=== PATIENT | female | born 1955 | race Caucasian/White ===

== ENCOUNTER 2019-12-18 09:54 | Outpatient (CLI) | payer BC, SELFPAY ==
--- NOTE | ~2019-12-18 | MM_ITS ---
EXAMINATION: MM screening sorin BI w elle HISTORY: Screening TECHNIQUE: Craniocaudal and mediolateral oblique 3-D tomosynthesis images were obtained and synthetic 2-D images were generated. CAD analysis was submitted and interpreted. COMPARISON: Comparison to multiple prior studies sequentially, with oldest reviewed study dated 11/20. BREAST PARENCHYMAL COMPOSITION: The breasts are heterogenously dense, which may obscure small masses FINDINGS: There is no evidence of suspicious mass, calcification, or architectural distortion to sugg est malignancy in either breast. There has been no suspicious interval change. IMPRESSION: 1. No mammographic evidence of malignancy. 2. Recommend routine screening mammography in one year. BI-RADS Category 1: Negative Reviewed, dictated and finalized at location A.
== END 2019-12-18 09:55 | disposition home or self-care (01) ==
PROVIDERS: PCP Family Medicine; Visit Provider Obstetrics & Gynecology
DX: Z12.31 Encounter for screening mammogram for malignant neoplasm of breast (principal)
CPT/HCPCS: 77063; 77067

== ENCOUNTER 2021-01-27 11:17 | Outpatient (CLI) | payer MEDICARE, SELFPAY ==
--- NOTE | ~2021-01-27 | XR_ITS ---
EXAMINATION: XR thoracic spine 3V DATE: 01/27/2021 11:43 INDICATION: Thoracic back pain TECHNIQUE: AP, lateral and lateral swimmer's views of the thoracic spine were obtained. COMPARISON: None. FINDINGS: There is no fracture, dislocation, or subluxation. The vertebral body heights are maintaine d. There is mild loss of intervertebral disc space height in the midthoracic spine. Small degenerativ e osteophytes project from the anterior endplates of multiple vertebral bodies. IMPRESSION: 1. Mild thoracic spondylosis without acute findings. Reviewed, dictated and finalized at location A.
== END 2021-01-27 11:18 | disposition home or self-care (01) ==
LOC: ANHIMG 11:19
PROVIDERS: PCP Family Medicine; Visit Provider Nurse Practitioner
DX: M47.814 Spondylosis without myelopathy or radiculopathy, thoracic region (principal)
CPT/HCPCS: 72072

== ENCOUNTER 2021-02-10 09:52 | Outpatient (CLI) | payer MEDICARE, SELFPAY ==
--- NOTE | ~2021-02-10 | DEXA_ITS ---
Bone Density Report Name: Zhao Silverio Age: 65 Sex: Female Ethnicity: White Date of : 1955 Indication: osteopenia; postmenopausal Referring Provider: EDI TRAORE Study: Bone densitometry was performed. Exam Date: February 10, 2021 Accession number: [id number] Bone Density: Region BMD T-score Z-score Classification AP Spine (L1, L2) 0.825 -1.4 0.3 Osteopenia Femoral Neck (Left) 0.761 -0.8 0.8 Normal Total Hip (Left) 0.978 0.3 1.6 Normal Total Hip Bilateral Avg 0.960 0.2 1.5 Normal Femoral Neck (Right) 0.723 -1.1 0.4 Osteopenia Total Hip (Right) 0.941 0.0 1.3 Normal World Health Organization criteria for BMD impression classify patients as: Normal (T-score at or above -1.0), Osteopenia (T-score between -1.0 and -2.5), or Osteoporosis (T-score at or below -2.5). 10-year Fracture Risk(1): Major Osteoporotic Fracture 8.3% Hip Fracture 0.7% Reported Risk Factors: [place] (), Neck BMD=0.723, BMI=28.3 (1) FRAX(R) Version 3.08. Fracture probability calculated for an untreated patient. Fracture probability may be lower if the patient has received treatment. Previous Exams: Region Exam Age BMD T-score BMD Change BMD Change Date g/cm2 vs Baseline vs Previous AP Spine(L1, L2) 02/10/2021 65 0.825 -1.4 0.055(7.1%)* 0.002(0.3%) 01/21/2018 62 0.823 -1.4 0.053(6.9%)* 0.017(2.1%) 12/01/2015 60 0.806 -1.6 0.036(4.7%)* 0.036(4.7%)* 11/28/2013 58 0.770 -1.9 Total Hip(Left) 02/10/2021 65 0.978 0.3 0.024(2.5%) 0.010(1.0%) 01/21/2018 62 0.968 0.2 0.014(1.5%) 0.006(0.6%) 12/01/2015 60 0.962 0.2 0.008(0.9%) 0.008(0.9%) 11/28/2013 58 0.954 0.1 Total Hip(Right) 02/10/2021 65 0.941 0.0 0.008(0.9%) -0.030(-3.1%)* 01/21/2018 62 0.971 0.2 0.038(4.1%)* 0.010(1.0%) 12/01/2015 60 0.962 0.2 0.028(3.1%)* 0.028(3.1%)* 11/28/2013 58 0.933 -0.1 *Denotes significance at 95% confidence level, LSC for AP Spine = 0.022 g/cm2, LSC for Total Hip = 0.027 g/cm2 Clinical Information Provided by Patient: Has used the following medications: Boniva (i.e. ibandronate), HRT (i.e. estrogen/hormone therapy), Vitamin D Patient maximum height was 60.5 Menopause Age: 49 No regular weight bearing exercise Drinks caffeinated beverages Onset of menses at age 10 Number of children 2 Impression: The patient has low bone mass, based on the Total
== END 2021-02-10 09:53 | disposition home or self-care (01) ==
PROVIDERS: PCP Family Medicine; Visit Provider Obstetrics & Gynecology
DX: Z78.0 Asymptomatic menopausal state (principal); M85.88 Other specified disorders of bone density and structure, other site; M85.851 Other specified disorders of bone density and structure, right thigh
CPT/HCPCS: 77080

== ENCOUNTER → 2021-02-18 03:23 | Outpatient (CLI) | payer MEDICARE, SELFPAY ==
[2021-02-18 18:10] LABS: SARS-CoV-2 RNA PCR Negative
== END ==
PROVIDERS: PCP Family Medicine; Visit Provider Family Medicine
DX: R05.9 Cough, unspecified (principal); Z20.822 Contact with and (suspected) exposure to COVID-19
CPT/HCPCS: C9803; U0003; U0005

== ENCOUNTER 2021-03-18 10:33 | Outpatient (CLI) | payer MEDICARE, SELFPAY ==
--- NOTE | ~2021-03-18 | MM_ITS ---
EXAMINATION: MM screening sorin BI w elle HISTORY: Screening TECHNIQUE: Craniocaudal and mediolateral oblique 3-D tomosynthesis images were obtained and synthetic 2-D images were generated. CAD analysis was submitted and interpreted. COMPARISON: Comparison to multiple prior studies sequentially, with oldest reviewed study dated 12/31. BREAST PARENCHYMAL COMPOSITION: The breasts are heterogenously dense, which may obscure small masses FINDINGS: There is no evidence of suspicious mass, calcification, or architectural distortion to sugg est malignancy in either breast. There has been no suspicious interval change. IMPRESSION: 1. No mammographic evidence of malignancy. 2. Recommend routine screening mammography in one year. BI-RADS Category 1: Negative Reviewed, dictated and finalized at location A. [employer]
== END 2021-03-18 10:34 | disposition home or self-care (01) ==
LOC: ANHIMG 10:36
PROVIDERS: PCP Nurse Practitioner; Visit Provider Obstetrics & Gynecology
DX: Z12.31 Encounter for screening mammogram for malignant neoplasm of breast (principal)
CPT/HCPCS: 77063; 77067

== ENCOUNTER → 2021-12-08 11:00 | Outpatient (CLI) | payer MEDICARE, SELFPAY ==
--- NOTE | ~2021-12-08 | MR_ITS ---
EXAMINATION: MR shoulder RT wo con DATE: 12/08/2021 11:33 INDICATION: Evaluate right shoulder pain TECHNIQUE: Magnetic resonance imaging (MRI) of the right shoulder was performed without intravenous c ontrast. Sequences included axial PD-weighted FS FSE, coronal oblique PD-weighted FS FSE, coronal obl ique T2-weighted FS FSE, sagittal PD-weighted FS FSE, and sagittal T1-weighted SE. COMPARISON: None. FINDINGS: Coracoacromial arch: The acromion undersurface is curved in morphology (type II). The coracoacromial ligament is normal. M oderate acromioclavicular osteoarthritis with small inferiorly directed osteophytes arising from the lateral head of the clavicle. Rotator cuff: Mild tendinopathy without discrete tear of the supraspinatus and anterior infraspinatus tendons. The subscapularis and teres minor tendons are normal. Normal rotator cuff muscle bulk and signal. Biceps tendon, glenoid labrum and glenohumeral cartilage: Long head of the biceps tendon is normal. Small tear at the base of the 12:00-11:00 position of the p osterior superior glenoid labrum beginning at the chondral labral junction. The posterior and inferio r labrum are diminutive. Diffuse mild partial-thickness cartilage loss along the glenoid. Approximate 1.5 cm diameter region of deep chondral ulceration with underlying cortical irregularity and small c entral subchondral osteophytes at the posterior superior aspect of the humeral head. Additional likel y scattered deep chondral fissuring of the humeral head. Fluid: Small glenohumeral joint effusion with partial extension of a small amount of fluid along the long he ad biceps tendon sheath. 8 x 2 x 4 mm immediate signal intensity lesion surrounded by fluid in the bi ceps tendon sheath below level of the intertubercular groove which could represent either nodular syn ovitis or a small loose body. No intra-articular loose osteochondral bodies. No abnormal increased fl uid in the subacromial/subdeltoid bursa to suggest bursitis. Bones: Mild likely degenerative subarticular edema and cystlike changes at the both sides of the acromioclav icular joint. Otherwise normal marrow signal. No fracture or pathologic marrow replacing process. IMPRESSION: 1. 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 2. Small SLAP tear at the 11:00-12:00 position of the posterior superior glenoid labrum. 3. Mild supraspinatus and anterior infraspinatus tendinopathy without discrete tear. 4. Mild acromion clavicular osteoarthritis. Reviewed, dictated and finalized at location A. IMPRESSION: 1. Mild glenohumeral osteoarthritis with high-grade chondromalacia along the hu meral head. 2. Small SLAP tear at the 11:00-12:00 position of the posterior superior glenoi d labrum. 3. Mild supraspinatus and anterior infraspinatus tendinopathy without discrete tear. 4. Mild acromion clavicular osteoarthritis.
== END ==
PROVIDERS: PCP Family Medicine; Visit Provider Nurse Practitioner Family
DX: S43.431A Superior glenoid labrum lesion of right shoulder, initial encounter (principal); M19.011 Primary osteoarthritis, right shoulder; M75.101 Unspecified rotator cuff tear or rupture of right shoulder, not specified as traumatic
CPT/HCPCS: 73221

== ENCOUNTER 2022-08-03 08:05 | Outpatient (CLI) | payer MEDICARE, SELFPAY ==
--- NOTE | 2022-08-20 16:13 | WPDHOMESLEEP ---
Sleep Study - Home Unattended Date of Study: 08/03/22 Ordering Provider: Tiesha Duran NP Interpreting Provider: Kamilah Chen MD Home Sleep Study Type: Watch PAT Height: 1.52 m Weight: 65.771 kg Body Mass Index: 28.3 Neck Circumference (inches): 13 Mcfaddin: 8 Reason for Sleep Study Daytime fatigue, disturbed nighttime sleep Sleep History Zhao Silverio is a 66-year-old female who is tired during the day and has no energy. Occasionally she has restless and achy legs. This is been going on for 1-2 years. She does not awaken from sleep feeling short of breath or awaken at night with heartburn, belching or coughing. She does not snore and other people do not tell her that she snores loudly. She does not have trouble sleeping with a cold. She does not wake up gasping for breath at night. She does not sweat excessively at night or notice her heart pounding or beating irregularly at night. She occasionally falls asleep during the day. She does not fall asleep involuntarily or while driving. She does not have loss of muscle tone with strong emotion. She does not have daytime difficulties due to excessive sleepiness. She is retired. She rarely feels paralyzed on waking or falling asleep. She does not have vivid dreamlike scenes on waking or falling asleep and does not feel afraid to go to sleep. She does not have nightmares. She occasionally remembers her dreams. She occasionally has racing thoughts. On occasion she feels sad, depressed, or anxious. She occasionally has muscular tension. She rarely notices parts of her body jerking. She does not kick at night. Occasionally has she she has crawling and aching feelings in her legs. She occasionally has leg pain during the night. She occasionally has morning jaw pain. She rarely grinds her teeth during sleep. She occasionally is bothered by pain during the day. She rarely is awakened by pain at night. She frequently wakes up feeling stiff in the morning with sore achy muscles and pain in the neck and spine. She has memory problems. She takes antacids regularly. Normal bedtime is 11:30 p.m.. It may take up to 1 hour to fall asleep. She routinely wakes up once during the middle of the night to go to the bathroom. She is able to return to sleep in 5 minutes. Her normal wake time is 8:30 a.m.. Weekend schedule is the same. She estimates getting 8 hours of sleep at night. Sometimes she takes naps in the afternoon or evening. On occasion a short nap lasting 10 or 15 minutes is refreshing. She feels better in the afternoon compared to other times a day. Habits: Never smoked tobacco. Caffeine 1 cup of coffee a day. Alcohol, 1 glass of wine 5 nights a week. No recreational substances. 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 GERD (gastroesophageal reflux disease) History of bradycardia Hyperlipidemia Impingement syndrome of right shoulder Overactive bladder Right shoulder pain Surgical History Surgical History H/O cataract removal with insertion of prosthetic lens No pertinent past surgical history Family History Family History Mother Family history of thyroid disease Hypertension Family history of arthritis Father Family history of arthritis Family history of lung cancer Other Family history of cardiovascular disease Family history of malignant neoplasm Family history of malignant neoplasm of stomach Family history of throat cancer Social History Social History Smoking status: Never smoker Alcohol intake: current Alcohol use details: wine, occasionally Substance use: never Substance use type: does not use Lack of Transportation: No Lack of Food: Never True
[2022-08-20 16:38] VITALS: BMI 28.3
== END 2022-08-04 11:35 | disposition home or self-care (01) ==
LOC: ANHCSM 08:17
PROVIDERS: PCP Family Medicine; Visit Provider Nurse Practitioner
DX: R53.83 Other fatigue (principal); G47.10 Hypersomnia, unspecified
CPT/HCPCS: 95800

== ENCOUNTER 2022-08-04 15:43 | Outpatient (CLI) | payer MEDICARE, SELFPAY ==
--- NOTE | ~2022-08-04 | MM_ITS ---
EXAMINATION: MM screening sorin BI w elle HISTORY: Screening mammogram TECHNIQUE: Craniocaudal and mediolateral oblique 3-D tomosynthesis images were obtained and synthetic 2-D images were generated. CAD analysis was submitted and interpreted. COMPARISON: 03/18/2021, 12/18/2019, 10/31/2018 bilateral screening mammogram examinations BREAST PARENCHYMAL COMPOSITION: The breasts are heterogeneously dense, which may obscure small masses . FINDINGS: There is no evidence of suspicious mass, calcification, or architectural distortion to sugg est malignancy in either breast. There has been no suspicious interval change. IMPRESSION: 1. No mammographic evidence of malignancy. 2. Recommend routine screening mammography in one year. BI-RADS Category 1: Negative Reviewed, dictated and finalized at location A.
== END 2022-08-04 15:44 | disposition home or self-care (01) ==
LOC: ANHIMG 15:45
PROVIDERS: PCP Family Medicine; Visit Provider Nurse Practitioner
DX: Z12.31 Encounter for screening mammogram for malignant neoplasm of breast (principal)
CPT/HCPCS: 77063; 77067

== ENCOUNTER 2022-12-27 08:44 | Emergency (ER) | payer MEDICARE, SELFPAY ==
--- NOTE | 2022-12-27 08:50 | ED.SKABFB ---
HPI - Skin/Abscess/Foreign Bdy General Chief complaint: Skin/Abscess/Foreign Body Stated complaint: Poison Joana Source: patient and RN notes reviewed Mode of arrival: ambulatory Limitations: no limitations History of Present Illness HPI narrative: Patient is a 67-year-old female who presents to the [facility] with complaints of poison joana. Patient states that she accidentally pulled poison joana out of the yd on Sunday of last week. She presents with rash to bilateral forearms. She also has a blister to the left forearm that is fluid filled. She reports itching to the areas with the rash present. States that she has had poison joana before and has had similar symptoms. Related Data Home Medications Medication Instructions Recorded Confirmed ergocalciferol (vitamin D2) 1,250 50,000 unit WEEKLY 02/18/19 12/27/22 mcg (50,000 unit) capsule estradiol 0.01% (0.1 mg/gram) 1 g vaginal 2XW 02/18/19 12/27/22 vaginal cream solifenacin 10 mg tablet 10 mg PO DAILY 09/14/20 12/27/22 escitalopram oxalate 10 mg tablet 5 mg PO DAILY 06/07/22 12/27/22 (Lexapro) triamcinolone acetonide 0.5 % 1 applic topical BID PRN Rash 06/07/22 12/27/22 topical cream Allergies Allergy/AdvReac Type Severity Reaction Status Date / Time ampicillin Allergy Unknown Hives Verified 12/27/22 08:56 cephalexin Allergy Unknown Rash Verified 12/27/22 08:56 Review of Systems Review of Systems: CONSTITUTIONAL: Denies fever, chills, or sweats. EYES: Denies visual changes, redness, or discharge. ENT: Denies otalgia and sore throat CARDIOVASCULAR: Denies chest pain, palpitations, or edema. RESPIRATORY: Denies cough or dyspnea. GASTROINTESTINAL: Denies abdominal pain, nausea, vomiting, or diarrhea. GENITOURINARY: Denies dysuria or hematuria. SKIN: Reports rash or itching. MUSCULOSKELETAL: Denies back pain, joint pain, or myalgia. NEUROLOGIC: Denies headache, numbness, or weakness. Pertinent positives per HPI. 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 GERD (gastroesophageal reflux disease) History of bradycardia Hyperlipidemia Impingement syndrome of right shoulder Overactive bladder Right shoulder pain Surgical History Surgical History H/O cataract removal with insertion of prosthetic lens No pertinent past surgical history Family History Family History Mother Family history of thyroid disease Hypertension Family history of arthritis Father Family history of arthritis Family history of lung cancer Other Family history of cardiovascular disease Family history of malignant neoplasm Family history of malignant neoplasm of stomach Family history of throat cancer Social History Social History Smoking status: Never smoker Alcohol intake: current Alcohol use details: wine, occasionally Substance use: never Substance use type: does not use Lack of Transportation: No Lack of Food: Never True Current Housing: I Have Housing Concerned About Future Housing: No Difficulty Paying Gas/Electric Bills: No Difficulty Paying for Meds: No Currently Unemployed: No Education: Associate Degree Difficulty w/ Childcare or Family Care: No Living arrangements: with family Additional living arrangements comments: Occupation/Education: retired Gender identity (if verbalized by the patient): Female Sexual Orientation (if Verbalized by the Patient): Straight or Heterosexual Agree to blood products: Yes Comments At the time of my signature, I reviewed and agree with the nursing past medical, surgical, social, and family history. There is no relevant family history pertinent to the patient complaint. Exam
[2022-12-27 08:57] VITALS: BP 112/76; PULSE 75; RESP 18; TEMP 35.8; O2SAT 98
== END 2022-12-27 09:04 | disposition home or self-care (01) ==
PROVIDERS: Emergency Provider Nurse Practitioner; PCP Family Medicine
DX: L23.7 Allergic contact dermatitis due to plants, except food (principal); K21.9 Gastro-esophageal reflux disease without esophagitis; E78.5 Hyperlipidemia, unspecified; F41.9 Anxiety disorder, unspecified
CPT/HCPCS: 99213; G0463

== ENCOUNTER 2023-01-15 11:38 | Outpatient (CLI) | payer MEDICARE, SELFPAY ==
[2023-01-15 19:53] LABS: Magnesium 2.2 mg/dL (1.6-2.3)
[2023-01-15 21:53] LABS: Hemoglobin A1C 5.2 % (<5.7)
== END 2023-01-15 11:39 | disposition home or self-care (01) ==
PROVIDERS: PCP Family Medicine; Visit Provider Nurse Practitioner Family
DX: Z13.1 Encounter for screening for diabetes mellitus (principal); Z13.21 Encounter for screening for nutritional disorder; R79.89 Other specified abnormal findings of blood chemistry; R51.9 Headache, unspecified; E53.8 Deficiency of other specified B group vitamins
CPT/HCPCS: 36415; 83036; 83735

== ENCOUNTER → 2023-01-17 10:48 | Outpatient (CLI) | payer MEDICARE, SELFPAY ==
--- NOTE | ~2023-01-17 | CT_ITS ---
EXAMINATION: CT BRAIN W/O DATE: 01/17/2023 11:02 INDICATION: Headaches TECHNIQUE: Computed tomography (CT) of the head was performed without intravenous contrast. The dose- length product was 645.69 mGy-cm. Automated exposure control and iterative reconstruction technique w ere employed. COMPARISON: No prior studies for comparison. FINDINGS: Normal brain parenchymal volume for age. Normal barney-white differentiation. No acute intrac ranial hemorrhage, infarction, mass or mass effect. No ventriculomegaly or midline shift. Midline sagittal images demonstrate a normal corpus callosum, c raniovertebral junction and sella turcica. Basilar cisterns are patent. Paranasal sinuses and mastoids are pneumatized. No depressed skull fractures. IMPRESSION: 1. No acute intracranial abnormality. Reviewed, dictated and finalized at location B.
== END ==
PROVIDERS: PCP Family Medicine; Visit Provider Nurse Practitioner Family
DX: R51.9 Headache, unspecified (principal)
CPT/HCPCS: 70450

== ENCOUNTER 2023-09-14 10:02 | Outpatient (CLI) | payer MEDICARE, SELFPAY ==
--- NOTE | ~2023-09-14 | MM_ITS ---
EXAMINATION: MM screening sorin BI w elle HISTORY: Screening TECHNIQUE: Craniocaudal and mediolateral oblique 3-D tomosynthesis images were obtained and synthetic 2-D images were generated. CAD analysis was submitted and interpreted. COMPARISON: Comparison to multiple prior studies sequentially, with oldest reviewed study dated 02/07. BREAST PARENCHYMAL COMPOSITION: The breasts are heterogeneously dense, which may obscure small masses . FINDINGS: There is no evidence of suspicious mass, calcification, or architectural distortion to sugg est malignancy in either breast. There has been no suspicious interval change. IMPRESSION: 1. No mammographic evidence of malignancy. 2. Recommend routine screening mammography in one year. BI-RADS Category 1: Negative Reviewed, dictated and finalized at location B.
== END 2023-09-14 10:03 | disposition home or self-care (01) ==
LOC: ANHIMG 10:04
PROVIDERS: PCP Family Medicine; Visit Provider Obstetrics & Gynecology Gynecology
DX: Z12.31 Encounter for screening mammogram for malignant neoplasm of breast (principal)
CPT/HCPCS: 77063; 77067

== ENCOUNTER 2024-01-22 12:19 | Emergency (ER) | payer MEDICARE, SELFPAY ==
--- NOTE | 2024-01-22 12:25 | ED.URI ---
HPI - URI/Sore Throat General Chief Complaint: Ear Stated Complaint: rt earache Time Seen by Provider: 01/22/24 12:48 Source: patient, RN notes reviewed and old records reviewed Mode of arrival: ambulatory Limitations: no limitations History of Present Illness HPI Narrative: 68-year-old female presents to the [facility] with complaints of right ear pain. Symptoms started 1 week ago Patient reports that she does use Flonase daily, has not used any when her ear started becoming uncomfortable. Denies any other treatment prior to arrival Related Data Home Medications Medication Instructions Recorded Confirmed ergocalciferol (vitamin D2) 1,250 50,000 unit WEEKLY 02/18/19 01/22/24 mcg (50,000 unit) capsule estradiol 0.01% (0.1 mg/gram) 1 g vaginal 2XW 02/18/19 01/22/24 vaginal cream solifenacin 10 mg tablet 10 mg PO DAILY 09/14/20 01/22/24 Allergies Allergy/AdvReac Type Severity Reaction Status Date / Time ampicillin Allergy Unknown Hives Verified 10/04/23 08:32 cephalexin Allergy Unknown Rash Verified 10/04/23 08:32 Review of Systems Review of Systems: All systems reviewed & are unremarkable except as noted in HPI and below Constitutional: Constitutional: Reports no additional constitutional complaints Eyes: Eyes: Reports no additional eye complaints ENT: Reports as per HPI and Reports otalgia (Right) Cardiovascular: Cardiovascular: Reports no additional cardiovascular complaints, Denies chest pain and Denies dyspnea Respiratory: Respiratory: Reports no additional respiratory complaints, Denies chest congestion, Denies cough and Denies dyspnea Gastrointestinal: Gastrointestinal: Reports no additional gastrointestinal complaints, Denies abdominal pain, Denies nausea and Denies vomiting Musculoskeletal: Musculoskeletal: Reports no additional musculoskeletal complaints Integumentary/Breasts: Skin/Breast: Reports system reviewed and no additional complaints, except as docu Neurologic: Reports system reviewed and no additional complaints, except as documented Psychiatric: Psychiatric: Reports no additional psychiatric complaints Allergic/Immunologic: Allergic/Immunologic: Reports no additional allergic/immunologic complaints PMFSH Past Medical History Medical History Anxiety DJD of AC (acromioclavicular) joint DJD of right shoulder DJD of shoulder GERD (gastroesophageal reflux disease) History of bradycardia Hyperlipidemia Impingement syndrome of both shoulders Impingement syndrome of right shoulder Increased frequency of headaches Left shoulder pain Low vitamin D level Overactive bladder Right shoulder pain Surgical History Surgical History H/O cataract removal with insertion of prosthetic lens No pertinent past surgical history Family History Family History Mother Family history of thyroid disease Hypertension Family history of arthritis Father Family history of arthritis Family history of lung cancer Other Family history of cardiovascular disease Family history of malignant neoplasm Family history of malignant neoplasm of stomach Family history of throat cancer Social History Social History Smoking status: Never smoker Alcohol intake: current Alcohol use details: wine, occasionally Substance use: never Substance use type: does not use Lack of Transportation: No Lack of Food: Never True Current Housing: I Have Housing Concerned About Future Housing: No Difficulty Paying Gas/Electric Bills: No Difficulty Paying for Meds: No Currently Unemployed: No Education: Associate Degree Difficulty w/ Childcare or Family Care: No Living arrangements: with family Additional living arrangements comments: Occupation/Education: retired
[2024-01-22 12:30] VITALS: BP 108/60; PULSE 75; RESP 16; TEMP 36.4; O2SAT 99
== END 2024-01-22 13:04 | disposition home or self-care (01) ==
PROVIDERS: Emergency Provider Nurse Practitioner; PCP Family Medicine
DX: H92.01 Otalgia, right ear (principal); K21.9 Gastro-esophageal reflux disease without esophagitis; E78.5 Hyperlipidemia, unspecified; M19.011 Primary osteoarthritis, right shoulder; Z96.1 Presence of intraocular lens; Z98.42 Cataract extraction status, left eye; Z98.41 Cataract extraction status, right eye
CPT/HCPCS: 99213; G0463

== ENCOUNTER 2024-03-11 09:30 | Outpatient (CLI) | payer MEDICARE, SELFPAY ==
[2024-03-11 13:00] LABS: Basophils Absolute Auto 0.1 K/mm3 (0.0-0.1); Basophils Percent Auto 0.7 % (0.2-1.2); Eosinophils Absolute Auto 0.1 K/mm3 (0-0.3); Eosinophils Percent Auto 1.2 % (0-4.4); Hematocrit 43.9 % (37.0-47.0); Hemoglobin 13.8 g/dL (12.0-15.0); Immature Granulocyte Absolute 0.02 K/mm3 (0.00-0.031); Immature Granulocyte Percent A 0.3 % (0-0.5); Lymphocytes Absolute Auto 1.69 K/mm3 (0.9-3.2); Lymphocytes Percent Auto 23.2 % (18.3-44.2); Mean Corpuscular HGB Conc 31.4 g/dl (32-36); Mean Corpuscular Hemoglobin 30.7 pg (26-34); Mean Corpuscular Volume 97.6 fl (80-100); Mean Platelet Volume 10.4 fl (7.4-10.4); Monocytes Absolute Auto 0.5 K/mm3 (0.1-0.6); Monocytes Percent Auto 6.3 % (2.6-8.5); Neutrophils Percent Auto 68.3 % (45.5-73.1); Platelet Count Result 200 k/mm3 (150-375); Red Cell Distribution Width 13.7 % (11.5-14.5); White Blood Count 7.3 K/mm3 (4.5-10.0)
[2024-03-11 13:23] LABS: Alanine Aminotransferase 17 U/L (6-35); Albumin Level 4.1 g/dL (3.5-5.1); Alkaline Phosphatase 63 U/L (38-126); Anion Gap 4 mmol/L (4-12); Aspartate Amino Transferase 25 U/L (14-36); Bilirubin,Total 0.7 mg/dL (0.2-1.3); Blood Urea Nitrogen 13 mg/dL (7-17); Carbon Dioxide 30 mmol/L (22-30); Chloride 106 mmol/L (98-107); Cholesterol 173 mg/dL (0-200); Estimated Glomerular Filt Rate > 60; Glucose 82 mg/dL (65-110); HDL Direct 67 mg/dL; Potassium 4.3 mmol/L (3.4-5.0); Sodium 140 mmol/L (137-145); Triglycerides 59 mg/dL (<150)
[2024-03-11 13:43] LABS: LDL Cholesterol Direct 76 mg/dL
[2024-03-11 14:00] LABS: Vitamin D 25 Hydroxy 32.7 ng/mL
[2024-03-11 16:02] LABS: Hemoglobin A1C 5.7 % (<5.7)
== END 2024-03-11 09:31 | disposition home or self-care (01) ==
PROVIDERS: PCP Family Medicine; Visit Provider Family Medicine
DX: E55.9 Vitamin D deficiency, unspecified (principal); Z00.00 Encounter for general adult medical examination without abnormal findings; F41.9 Anxiety disorder, unspecified; I49.1 Atrial premature depolarization; M19.019 Primary osteoarthritis, unspecified shoulder; R51.9 Headache, unspecified; R53.83 Other fatigue; E78.5 Hyperlipidemia, unspecified; Z79.899 Other long term (current) drug therapy; Z13.29 Encounter for screening for other suspected endocrine disorder; E53.8 Deficiency of other specified B group vitamins; R73.9 Hyperglycemia, unspecified
CPT/HCPCS: 36415; 80053; 80061; 82306; 82607; 83036; 84443; 85025

== ENCOUNTER 2024-06-02 14:54 | Outpatient (CLI) | payer MEDICARE, SELFPAY ==
--- NOTE | ~2024-06-02 | DEXA_ITS ---
Bone Density Report Name: MAURI MARIE Age: 68 Sex: Female Ethnicity: White Date of : 1955 Indication: osteopenia; height loss; Referring Provider: AZALIA, ESTIVEN Study: Bone densitometry was performed. Exam Date: June 02, 2024 Accession number: [id number] Bone Density: Region BMD T-score Z-score Classification AP Spine(L1-L4) 0.969 -0.7 1.4 Normal Femoral Neck (Left) 0.781 -0.6 1.2 Normal Total Hip (Left) 0.943 0.0 1.5 Normal Femoral Neck (Right) 0.802 -0.4 1.4 Normal Total Hip (Right) 1.042 0.8 2.3 Normal Total Hip Mean 0.992 0.4 1.9 Normal World Health Organization criteria for BMD impression classify patients as: Normal (T-score at or above -1.0), Osteopenia (T-score between -1.0 and -2.5), or Osteoporosis (T-score at or below -2.5). 10-year Fracture Risk: FRAX not reported because: All T-scores for Spine Total, Hip Total, Femoral Neck at or above -1.0 Previous Exams: Region Exam Age BMD T-score BMD Change BMD Change Date g/cm2 vs Baseline vs Previous AP Spine (L1-L4) 06/02/2024 68 0.969 -0.7 0.129 (15.4%)* 0.081 (9.1%)* 12/01/2015 60 0.888 -1.4 0.049 (5.8%)* 0.049 (5.8%)* 11/28/2013 58 0.839 -1.9 Total Hip(Left) 06/02/2024 68 0.943 0.0 -0.011 (-1.2%) -0.035 (-3.6%) 02/10/2021 65 0.978 0.3 0.024 (2.5%) 0.010 (1.0%) 01/21/2018 62 0.968 0.2 0.014 (1.5%) 0.006 (0.6%) 12/01/2015 60 0.962 0.2 0.008 (0.9%) 0.008 (0.9%) 11/28/2013 58 0.954 0.1 Total Hip(Right) 06/02/2024 68 1.042 0.8 0.108 (11.6%)# 0.100 (10.7%)# 02/10/2021 65 0.941 0.0 0.008 (0.9%) -0.030 (-3.1%) 01/21/2018 62 0.971 0.2 0.038 (4.1%)* 0.010 (1.0%) 12/01/2015 60 0.962 0.2 0.028 (3.1%)* 0.028 (3.1%)* 11/28/2013 58 0.933 -0.1 *Denotes significance at 95% confidence level, LSC for AP Spine = 0.022 g/cm2, LSC for Total Hip = 0.027 g/cm2 # Denotes dissimilar scan types or analysis methods Clinical Information Provided by Patient: Patient maximum height was 60.5 Menopause Age: 49 No regular weight bearing exercise Drinks caffeinated beverages Onset of menses at age 11 Number of children 2 Impression: The patient has normal bone mass. The BMD for the Total Hip(Left) decreased, changing by -3.6% since the last DXA exam. Discussion: BONE DENSITY IS ABOVE THE MINIMUM DESIRABLE LEVEL AT ALL SKELETAL SITES TESTED. This patient?s bone mineral density is above the minimum desirable level (T-score -1.0 or better) at all sites measured. The patient should follow a healthful lifestyle (good nutrition with adequate calcium and vitamin D, and appropriate weight-bearing exercise). Follow-Up: Consider repeating this study in 3 to 4 years to reassess this patient's status, or sooner if there is some new clinical indication. Reported by: ALHAJI on 06/02/2024 3:28:00 PM. Reviewed, dictated and finalized at location Tila BATEMAN
--- OUTSIDE RECORDS SUMMARY | 2024-06-02 17:23 | XMS_ITS | Clinical Summary ---
Author Organization [facility] Address [address] [place] [address] Phone Care Team Providers Care Laryngologist Name Role Phone Unavailable Primary Care Provider Unavailabl e Immunizations Immunization Administration Dates Next Due INFLUENZA VACCINE HIGH DOSE QUADRIVALENT 65 YR U P PF IM 01/06/2022 Social History Tobacco Use Types Packs/Day Years Used Date Smoking Tobacco: Never Assessed Comments Unknown Sex and Gender Information Value Date Recorded Sex Assigned at Not on file Legal Sex Female 3:49 AM [employer] Gender Identity Not on file Sexual Orientation Not on file Plan of Treatment Health Maintenance Due Date Last Done Comments DTAP/TDAP/TD VACCINES (1 - Tdap) 1973 BREAST CANCER SCREENING 1994 COLORECTAL SCREENING 10/25/1999 Colorectal Cancer Screening 10/25/1999 FIT-DNA Q 3 years 10/25/1999 FIT/FOBT Q 1 year 10/25/1999 Flex Sig/CT Colonography Q 5 years 10/25/1999 PNEUMOCOCCAL VACCINE 65+ YEARS (1 of 1 - PCV) 10/25/19 05 ZOSTER VACCINE (1 of 2) 2004 OSTEOPOROSIS SCREENING 10/25/2019 INFLUENZA VACCINE (#1) 2023 01/06/2022 RSV VACCINE (60+ or ) (1 - 1-dose 75+ series) 2029 Insurance [facility] [id number] RX [employer] Member Subscriber Plan / Payer (Ef fective for All Dates) Name:Zhao Silverio Relation to Subscriber:Self Name:Zhao Silverio Payer ID:Not on file Group ID:[id number] Type:RX Medicare Part D Address: [address]
--- OUTSIDE RECORDS SUMMARY | 2024-06-02 17:23 | XMS_ITS | Encounter Summary ---
Author Organization [facility] Address 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
--- OUTSIDE RECORDS SUMMARY | 2024-06-02 17:23 | XMS_ITS | Patient Health Summary ---
Author Organization [facility] [employer] Address [address] [place] [address] Care Team Providers Care Spa Technician Name Role Phone Unavailable Primary Care Provider Unavailabl e Note from [facility],non-owned Affiliates and Associated Physician Practices is amultiple site organization consisting of ambulatory clinics and hospital sitesin [place], [place], [place] and [place]. This disclosure is being madepursuant to the Care Everywhere program and may not contain all information available regarding this patient. Last updated 17.[facility] [employer] Social History Tobacco Use Types Packs/Day Years Used Date Smoking Tobacco: Never Assessed Sex and Gender Information Value Date Recorded Sex Assigned at Not on file Gender Identity Female 05/20/2021 1:03 PM ASSISTANT PUBLIC DEFENDER Sexual Orientation Not on file Procedures * XR PELVIS W BILAT HIP 2VW(Performed 05/20/2021) Performed for Ankylosing spondylitis of multiple sites in spine (HCC), Sacroiliitis (HCC) * VITAMIN D 1,25 DIHYDROXY + 25 HYDROXY(Performed 12/30/2011) * LIPID PROFILE(Performed 12/30/2011) * COMPREHENSIVE METABOLIC PANEL(Performed 12/30/2011) * BACTERIAL VAGINOSIS DNA PCR(Performed 02/17/2011) * URINALYSIS - POINT OF CARE (AMB) [facility](Performed 01/04/2011) * URINALYSIS - POINT OF CARE (AMB) [facility](Performed 12/27/2010) * CULTURE URINE(Performed 12/27/2010) * CELIAC DISEASE REFLEXIVE CASCADE(Performed 12/15/2010) * LIPID PROFILE(Performed 12/15/2010) * PATHOLOGY/GENETICS HISTORICAL-ONBASE(Performed 12/07/2010) * PATHOLOGY/GENETICS HISTORICAL-ONBASE(Performed 12/06/2010) * PAP IG RFLX HPV ASCU(Performed 11/26/2009) * HPV HIGH RISK(Performed 11/26/2009) * BASIC METABOLIC PANEL (CALCIUM TOTAL)(Performed 12/19/2008) * LIPID PROFILE(Performed 12/19/2008) * PAP IG RFLX HPV ASCU(Performed 11/05/2008) * PATHOLOGY/GENETICS HISTORICAL-ONBASE(Performed 02/13/2008) * PATHOLOGY/GENETICS HISTORICAL-ONBASE(Performed 02/13/2008) * LAB HISTORICAL RESULTS-ONBASE(Performed 02/13/2008) Results * XR HIPS BILATERAL 2 VW W AP PELVIS (05/20/2021 1:23 PM ASSISTANT PUBLIC DEFENDER) Anatomical Region Laterality Modality Pelvis, Lower Extremity Radiogra phic Imaging 05/20/2021 2:40 PM ASSISTANT PUBLIC DEFENDER Narrative 05/20/2021 2:40 PM ASSISTANT PUBLIC DEFENDER EXAM: XR PELVIS W BILAT HIP 2VW*[id number] INDICATION: Ankylosing spondylitis of multiple sites in spine, pelvic pain, bilateral hip pain COMPARISON: none available FINDINGS: There is no displaced fracture or dislocation. There is no osseous destruction. Significant hypertrophic or erosive changes are not identified. *Reading Radiologist: Sekou Lira on 05/20/2021 at 2:40 PM Procedure Note Sekou Lira MD - 05/20/2021 EXAM: XR PELVIS W BILAT HIP 2VW*[id number] INDICATION: Ankylosing spondylitis of multiple sites in spine, pelvic pain, bilateral hip pain COMPARISON: none available FINDINGS: There is no displaced fracture or dislocation. There is no osseous destruction. Significant hypertrophic or erosive changes are not identified. *Reading Radiologist: Sekou Lira on 05/20/2021 at 2:40 PM Michael Ribera MD DIAGNOSTIC IMAGING O RDERABLES * VITAMIN D 1,25 DIHYDROXY + 25 HYDROXY (12/30/2011 9:19 AM CDT) Calcitriol (1,25 di-OH Vit D) 66.9 10.0 - 75.0 pg/mL [facility] ([facility]) 12/30/2011 9:19 AM CDT 12/30/2011 2:24 PM CDT Narrative [facility] ([facility]) - 01/03/2012 7:30 AM CDT Performed at: [address] [place] [address] [id number] Customer Experience Professional: Jez Mason MD, Phone: [phone] Betty Luna MD LAB - CHEMISTRY ORD ERABLES [facility] ([facility]ER) * COMPREHENSIVE METABOLIC PANEL (12/30/2011 9:15 AM CDT) Pathologist [facility] Glucose 85 65 - 99 mg/dL [facility] ([facility]) BUN 15 6 - 24 mg/dL [facility] ([facility]) Creatinine 0.65 0.57 - 1.00 mg/dL [facility] ([facility]) eGFR non- 99 >59 mL/min/1.7 3 [facility] ([facility]) eGFR 114 >59 mL/min/1.7 3 [facility] (BEAKER) BUN/Creatinine Ratio 23 9 - 23 [facility] ([facility]AKER) Sodium 141 134 - 144 mmol/L [facility] ([facility]) Potassium 4.7 3.5 - 5.2 mmol/L [facility] ([facility]) Chloride 104 97 - 108 mmol/L [facility] ([facility]) CO2 24 20 - 32 mmol/L [facility] (BEAKER) Calcium 9.6 8.7 - 10.2 mg/dL [facility] ([facility]) Protein Total 6.8 6.0 - 8.5 g/dL [facility] ([facility]) Albumin 4.2 3.5 - 5.5 g/dL [facility] ([facility]) Globulin Total 2.6 1.5 - 4.5 g/dL [facility] ([facility]) Albumin/Globulin Ratio 1.6 1.1 - 2.5 [facility] ([facility]) Bilirubin Total 0.4 0.0 - 1.2 mg/dL [facility] ([facility]) Alkaline Phosphatase 89 25 - 150 IU/L [facility] ([facility]) AST 25 0 - 40 IU/L [facility] ([facility]) ALT 34 0 - 40 IU/L [facility] ([facility]) Serum 12/30/2011 9:15 AM CDT 12/30/2011 2:24 PM CDT Narrative [facility] ([facility]) - 12/31/2011 9:43 AM CDT Performed at: [address] [place] [address] [id number] Customer Experience Professional: Siobhan Jenkins MD, Phone: [phone] Betty Luna MD LAB - CHEMISTRY ORD ERABLES [facility] ([facility]) * (ABNORMAL) LIPID PROFILE (12/30/2011 9:15 AM CDT) Only the most recent of3 resultswithin the time period is included. Cholesterol Total 219(H) 100 - 199 mg/dL [facility] (BEAKER) Comment:Please note refere nce interval change Triglycerides 64 0 - 149 mg/dL [facility] (BEAKER) Comment:Please note refere nce interval change HDL 62 >39 mg/dL [facility] Comment: According to ATP-III Guidelines, HDL-C >59 mg/dL is considered a negative risk factor for CHD. VLDL Calculated 13 5 - 40 mg/dL [facility] ([facility]AKER) LDL Calculated 144(H) 0 - 99 mg/dL [facility] (BEAKER) Comment:Please note refere nce interval change Venous blood specimen (specimen) 12/30/2011 9:15 AM CDT 12/30/2011 2:24 PM CDT Narrative [facility] ([facility]) - 12/31/2011 9:43 AM CDT Performed at: [address] [place] [address] [id number] Customer Experience Professional: Siobhan Jenkins MD, Phone: [phone] Betty Luna MD LAB - CHEMISTRY ORD ERABLES [facility] ([facility] * BACTERIAL VAGINOSIS DNA PCR (02/17/2011 12:00 AM ASSISTANT PUBLIC DEFENDER) Cady Species Negative Negative [facility] ([facility]) Gardnerella vaginalis Negative Negative [facility] ([facility]) Trichomonas vaginalis Negative Negative [facility] ([facility]) 02/17/2011 02/17/2011 10: 12 PM ASSISTANT PUBLIC DEFENDER Narrative [facility] ([facility]) - 02/18/2011 2:11 PM ASSISTANT PUBLIC DEFENDER Performed at: 01 - [address] [id number] Customer Experience Professional: Siobhan Jenkins MD, Phone: [phone] Betty Luna MD LAB - MICROBIOLOGY ORDERABLES Performing Organization Address City/[facility]/ZIP Co de Phone Number [facility] ([facility]) * URINALYSIS - POINT OF CARE (AMB) [facility] (01/04/2011) Only the most recent of2 resultswithin the time period is included. Glucose UA neg [facility] Bilirubin UA POCT neg [facility] Ketones UA POCT neg [facility] Specific [place] UA 1.015 [facility] Blood Urine POCT neg [facility] pH UA 8.0 [facility] Protein UA neg [facility] Urobilinogen UA 0.2 [facility] Nitrite UA neg [facility] WBC UA 15 [facility] Urine specimen (specimen) 01/04/2011 Primitivo Cohen MD LAB - POINT OF CARE ORDERABLES [facility] * CULTURE URINE (12/27/2010 12:00 AM CDT) Urine Culture Routine Final report [facility] ([facility]) Result 1 No growth [facility] 12/27/2010 12/27/2010 9:4 6 PM CDT Narrative [facility] ([facility]) - 12/29/2010 3:09 AM CDT Performed at: [address] [place] [address] [id number] Customer Experience Professional: Siobhan Jenkins MD, Phone: [phone] Betty Luna MD LAB - MICROBIOLOGY ORDERABLES Performing Organization Address [facility] Co de Phone Number [facility]) * CELIAC DISEASE EVALUATION PANEL (12/15/2010 3:11 PM CDT) Gliadin Antibody IgA 4 0 - 19 units [facility]) Comment: Negative 0 - 19 Weak Positive 20 - 30 Moderate to Strong Positive >30 TTG Antibody IgA <2 0 - 3 U/mL [facility]) Comment: Negative 0 - 3 Weak Positive 4 - 10 Positive >10 Tissue Transglutaminase (tTG) has been identified as the endomysial antigen. Studies have demonstr- ated that endomysial IgA antibodies have over 99% specificity for gluten sensitive enteropathy. 12/15/2010 3:11 PM CDT 12/15/2010 5:33 PM CDT Narrative [facility]) - 12/16/2010 4:20 PM CDT Preferred Lab:->[facility] Performed at: [address] [id number] Customer Experience Professional: Siobhan Jenkins MD, Phone: [phone] Betty Luna MD LAB - SEROLOGY ORDE RABLES Performing Organization Address [facility] Co de Phone Number [facility]) * PATHOLOGY/GENETICS HISTORICAL-ONBASE (12/07/2010) Only the most recent of4 resultswithin the time period is included. 12/07/2010 Betty Luna MD LAB - CHEMISTRY ORD ERABLES Performing Organization Address City/[facility]/ZIP Co de Phone Number [facility] * HPV HIGH RISK (11/26/2009 5:04 PM CDT) Human papillomavirus DNA High Risk NOT DETECTED [facility] Comment: REFERENCE RANGE: NOT DETECTED TESTED FOR HIGH RISK TYPES 16,18,31,33,35,39,45,51,52, 56,58,59,68. THE ANALYTICAL PERFORMANCE CHARACTERISTICS OF THIS ASSAY, WHEN USED TO TEST SUREPATH OR VAGINAL SPECIMENS, HAVE BEEN DETERMINED BY [facility]. METHODOLOGY: HYBRID CAPTURE WITH SIGNAL AMPLIFICATION Test Performed at: [facility] [address] [id number] JEZ VALADEZ DO 11/26/2009 5:04 PM CDT 11/28/2009 11:39 PM CDT Betty Luna MD LAB - MICROBIOLOGY ORDERABLES [facility] * (ABNORMAL) PAP IG RFLX HPV ASCU (11/26/2009 5:04 PM CDT) Only the most recent of2 resultswithin the time period is included. Report Status FINAL [facility] Clinical Information SEE NOTE [facility] Comment: Postmenopausal Routine exam LMP SEE NOTE [facility] Comment:Information not prov ided Previous Pap SEE NOTE [facility] Comment:Information not prov ided Prev. BX SEE NOTE [facility] Comment:Information not prov ided Source SEE NOTE [facility] Comment:Endocervix Statement of Adequacy SEE NOTE [facility] Comment: Satisfactory for evaluation. Endocervical/transformation zone component present. General Catergorization SEE NOTE(A) [facility] Comment:EPITHELIAL CELL ABNO RMALITY Interpretation Result SEE NOTE(A) [facility] Comment: Atypical Squamous Cells of Undetermined Significance (ASC-US) Comment SEE NOTE [facility] Comment: This Pap test has been evaluated with computer assisted technology. As requested, sample is submitted for High Risk HPV DNA testing. Suggest clinical correlation and follow-up as clinically appropriate Maintenance Shop Laborer SEE NOTE [facility] Comment:DDS, CT(ASCP) Pathologist SEE NOTE [facility] Comment: Jalil Whitney M.D., Board Certified in Anatomic Pathology and Cytopathology. ext. [phone] (electronic signature) Test Performed at: [facility] [address] [phone] JEZ VALADEZ DO 11/26/2009 5:04 PM CDT 11/28/2009 11:39 PM CDT Betty Luna MD LAB - PATHOLOGY/CYT OLOGY ORDERABLES Performing Organization Address [facility]/ZIP Co de Phone Number [facility] * BASIC METABOLIC PANEL (CALCIUM TOTAL) (12/19/2008 9:11 AM CDT) Pathologist [facility] Glucose POCT 82 65 - 99 mg/dL [facility] Comment:FASTING REFERENCE IN TERVAL BUN 13 7 - 25 mg/dL [facility] Creatinine 0.75 0.60 - 1.10 mg/dL [facility] BUN/Creatinine Ratio NOT APPLICABLE 6 - 22 (calc) [facility] Comment: BUN/CREATININE RATIO IS NOT REPORTED WHEN THE BUN AND CREATININE VALUES ARE WITHIN NORMAL LIMITS. Sodium 142 135 - 146 mmol/L [facility] Potassium 3.9 3.5 - 5.3 mmol/L [facility] Chloride 108 98 - 110 mmol/L [facility] CO2 24 21 - 33 mmol/L [facility] Calcium 8.9 8.6 - 10.2 mg/dL [facility] Comment: REPORT COMMENT: PREFERRED LAB:->[facility]; PREFERRED LAB:->[facility] FA[facility] Test Performed at: [facility] [address] [phone] GREYSON BETTS MD 12/19/2008 9:11 AM CDT 12/19/2008 9:12 AM CDT Betty Luna MD LAB - CHEMISTRY ORD ERABLES Performing Organization Address [facility]/ZIP Co de Phone Number [facility] * LAB HISTORICAL RESULTS-ONBASE (02/13/2008) 02/13/2008 Betty Luna MD LAB - CHEMISTRY ORD ERABLES [facility]
--- OUTSIDE RECORDS SUMMARY | 2024-06-02 17:23 | XMS_ITS | Referral Summary ---
Author Organization [facility] Address [address] [place] [address] Care Team Providers Care Fighting Vehicle Infantryman Name Role Phone Unavailable Primary Care Provider Unavailabl e Source Comments [facility],non-owned Affiliates and Associated Physician Practices is amultiple site organization consisting of ambulatory clinics and hospital sitesin [place], [place], [place] and [place]. This disclosure is being madepursuant to the Care Everywhere program and may not contain all information available regarding this patient. Last updated 17.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 Sexual Orientation Not on file Plan of Treatment Not on file Procedures Procedure Name Priority Date/Time Associated Diagnosis Comments LIPID PROFILE Routine 12/30/2011 9:15 AM CDT from Last 3 Months or Most Recently Relevant to Health Maintenance Results * (ABNORMAL) LIPID PROFILE (12/30/2011 9:15 AM CDT) Cholesterol Total 219(H) 100 - 199 mg/dL [facility] ([facility]) Comment:Please note refere nce interval change Triglycerides 64 0 - 149 mg/dL [facility] ([facility]) Comment:Please note refere nce interval change HDL 62 >39 mg/dL [facility] ([facility]) Comment: According to ATP-III Guidelines, HDL-C >59 mg/dL is considered a negative risk factor for CHD. VLDL Calculated 13 5 - 40 mg/dL [facility] ([facility]) LDL Calculated 144(H) 0 - 99 mg/dL [facility] ([place]) Comment:Please note refere nce interval change Venous blood specimen (specimen) 12/30/2011 9:15 AM CDT 12/30/2011 2:24 PM CDT Narrative [facility] ([place]) - 12/31/2011 9:43 AM CDT Performed at: 01 - [address] [id number] Milieu Therapist: Siobhan Jenkins MD, Phone: [phone] Betty Luna MD LAB - CHEMISTRY ORD ERABLES [facility] NOEMI) from Last 3 Months or Most Recently Relevant to Health Maintenance
--- OUTSIDE RECORDS SUMMARY | 2024-06-02 17:23 | XMS_ITS | Clinical Summary ---
Author Organization [facility] Address [address] [place] [address] Care Team Providers Care Sexual Assault Counsellor Name Role Phone Unavailable Primary Care Provider Unavailabl e Source Comments [facility],non-owned Affiliates and Associated Physician Practices is amultiple site organization consisting of ambulatory clinics and hospital sitesin [place], [place], [place] and [place]. This disclosure is being madepursuant to the Care Everywhere program and may not contain all information available regarding this patient. 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 Sexual Orientation Not on file Plan of Treatment Health Maintenance Due Date Last Done Comments BONE DENSITY TESTING 1954 COLOGUARD (AGES 45-75) - COL ON CA SCREENING 1954 COLON MONITORING 1954 COLONOSCOPY - COLON CA SCREENING 1954 CT COLONOGRAPHY - COLON CA SCREENING 1954 Colorectal Cancer Screening 1954 FIT - COLON CA SCREENING 1954 FLEX SIG - COLON CA SCREENING 1954 MAMMOGRAM 1954 HEPATITIS C SCREENING 10/19/1972 DTAP/TDAP/TD VACCINES (1 - Tdap) 1973 PNEUMOCOCCAL VACCINE 50+ (1 of 1 - PCV) 2004 ZOSTER VACCINE (1 of 2) 2004 LIPID TESTING 12/29/2016 12/30/2011, 12/15/2010, 12/19/2008 COVID-19 VACCINE (1 - 2023-2 5 season) 2023 INFLUENZA VACCINE (#1) 2023 12/26/2011 DEPRESSION SCREENING 04/09/2024 MEDICARE AWV CALENDAR YEAR 2024 Respiratory Syncytial Virus (RSV) Vaccine Pt: or over 60 yrs (1 - 1-dose 75+ series) 2029 HEPATITIS B VACCINE Aged Out No longe r eligible based on patient's age to complete this topic HIB VACCINE Aged Out No longer eligi ble based on patient's age to complete this topic HPV VACCINE Aged Out No longer eligi ble based on patient's age to complete this topic MENINGOCOCCAL (Group B) VACCINE Aged Out No longer eligible b ased on patient's age to complete this topic MENINGOCOCCAL VACCINE Aged Out No zach eddie eligible based on patient's age to complete this topic Procedures Procedure Name Priority Date/Time Associated Diagnosis Comments LIPID PROFILE Routine 12/30/2011 9:15 AM CDT from Last 3 Months or Most Recently Relevant to Health Maintenance Results * (ABNORMAL) LIPID PROFILE (12/30/2011 9:15 AM CDT) Cholesterol Total 219(H) 100 - 199 mg/dL [facility] ([employer]) Comment:Please note refere nce interval change Triglycerides 64 0 - 149 mg/dL [facility] ([employer]) Comment:Please note refere nce interval change HDL 62 >39 mg/dL [facility] ([employer]) Comment: According to ATP-III Guidelines, HDL-C >59 mg/dL is considered a negative risk factor for CHD. VLDL Calculated 13 5 - 40 mg/dL [facility] ([facility]) LDL Calculated 144(H) 0 - 99 mg/dL [facility] Comment:Please note refere nce interval change Venous blood specimen (specimen) 12/30/2011 9:15 AM CDT 12/30/2011 2:24 PM CDT Narrative [facility] ([employer]) - 12/31/2011 9:43 AM CDT Performed at: [address] [place] [id number] Hoop Punch And Coiler Operator Helper: Siobhan Jenkins MD, Phone: [phone] Betty Luna MD [facility] - [facility] Organization Address City/State/ZIP Co de Phone Number [facility] ([place]) from Last 3 Months or Most Recently Relevant to Health Maintenance
--- OUTSIDE RECORDS SUMMARY | 2024-06-02 17:23 | XMS_ITS | Continuity of Care Document ---
Author Organization [facility] Address [address] [place] [address] [address] [place] [address] Phone Care Team Providers Care Piping Engineer Name Role Phone Mejia PT,MPT,ATC, Niall Unavailable Unavai lable Procedures Procedure Date Progress Note Therapeutic Activities Neuromuscular Re-Ed Therapeutic Activities Neuromuscular Re-Ed Therapeutic Activities Neuromuscular Re-Ed Therapeutic Activities Neuromuscular Re-Ed Therapeutic Activities Neuromuscular Re-Ed Doc neg elder mal no plan PRES/ABSN URINE INCON ASSESS PT Evaluation Moderate Complexity Therapeutic Activities Neuromuscular Re-Ed Therapeutic Activities Neuromuscular Re-Ed Therapeutic Activities Therapeutic Activities Progress Note Therapeutic Activities Neuromuscular Re-Ed Therapeutic Exercise Therapeutic Activities Neuromuscular Re-Ed Therapeutic Exercise Therapeutic Activities Neuromuscular Re-Ed Therapeutic Exercise Therapeutic Activities Neuromuscular Re-Ed Therapeutic Activities Neuromuscular Re-Ed Therapeutic Exercise Therapeutic Activities Neuromuscular Re-Ed Therapeutic Exercise Neuromuscular Re-Ed Therapeutic Activities Therapeutic Exercise Therapeutic Activities Neuromuscular Re-Ed Therapeutic Exercise Therapeutic Activities Neuromuscular Re-Ed Manual Therapy Doc neg elder mal no plan Therapeutic Activities PT Evaluation Moderate Complexity Neuromuscular Re-Ed Advance Directives Directive Yes / No Effective Date File Name No Information Encounters Encounter Description Practice Location Reason(s) For Visit Diagnoses Date Provider Providers Copied on Encounter [facility] [facility], [place], [place], [id number], tel:[phone] [place] No Information 5 Roberto Galindo MD, [place]. Referring Provider: [address], [place], [address]. tel:[phone] [address] [place], [place] [id number] [place] [facility] [address] [place] [address], [id number], tel:[phone] [place] No Information 5 Roberto Galindo MD, [place]. Referring Provider: Yas [address], [place], [address]. tel:[phone] [address] [place], [place] [id number] [facility] [address] [place] [address], [id number], [place] tel:[phone] [place] No Information 5 Roberto Galindo MD, [place]. Referring Provider: Yas [address], [place], [address]. tel:[phone] [address] [place], [place] [id number] [facility] [address] [place] [address], [id number], [place] tel:[phone] [place] No Information 0 5 Roberto Galindo , [place], [place]. Referring Provider: Chrissie Mays, [address], [place], [address]. tel:[phone] [facility], [address], [place], [place], [id number], [place] tel:[phone] [place] No Information 5 Roberto Galindo , [place], [place]. Referring Provider: Chrissie Mays, [address], [place], [address]. tel:[phone] [facility] [address], [place], [place], [id number], [place] tel:[phone] [place] No Information 0 5 Roberto Galindo , [place], [place]. Referring Provider: Chrissie Mays, [address], [place], [address]. tel:[phone] [facility], [address], [place], [place], [id number], [place] tel:[phone] [place] No Information 2 Klnicon Fox. . Referring Provider: Tommy Stern, [address] [place] [address] [address], [place], [address]. [facility], [address], [place], [place], [id number], [place] tel:[phone] [place] No Information 2 Klahn Fox. . Referring Provider: Tommy Stern, [facility] [address], [place], [address]. [facility], [place], [place], [id number], [place] tel:[phone] [place] No Information 2 Klnicon Fox. . Referring Provider: Tommy Stern, [facility] [address], [place], [address]. [facility], [place], [place], [id number], [place] tel:[phone] [place] No Information Nov0 2 Klahn Fox. . Referring Provider: Tommy Stern, [address] [place] [address] [address], [place], [address]. [facility], [address], [place], [place], [id number], [place] tel:[phone] [place] No Information Nov-0 2- 2 Klahn Fox. . Referring Provider: Tommy Stern, [address] [place] [address] [address], [place], [address]. [facility], [address], [place], [place], [id number], [place] tel:[phone] [place] No Information Jan-2 2 Klahn Fox. . Referring Provider: Tommy Stern, [address] [place] [address] [address], [place], [address]. [facility], [address], [place], [place], [id number], [place] tel:[phone] [place] No Information Jan-2 2 Klahn Fox. . Referring Provider: Tommy Stern, [address] [place] [address] [address], [place], [address]. [facility], [address] [facility], [place], [place], [id number], [place] tel:[phone] [place] No Information 2 2 Klahn Fox. . Referring Provider: Tommy Stern, [address] [place] [address] [address], [place], [address]. [facility], [address], [place], [place], [id number], [place] tel:[phone] [place] No Information 2 Klahn Fox. . Referring Provider: Tommy Stern, [address] [place] [address] [address], [place], [address]. [facility], [address], [place], [place], [id number], [place] tel:[phone] [place] No Information Jan- 2 Klahn Fox. . Referring Provider: Tommy Stern, [address] [place] [address] [address], [place], [address]. [address], [place], [place], [id number], tel:[phone] [place] No Information 0 2 Kael Braxton. . Referring Provider: Tommy Stern [address] [place] [address] [address], [place], [address]. [address], [place], [place], [id number], tel:[phone] [place] No Information 0 2 Kael Braxton. . Referring Provider: Tommy Stern [address] [place] [address] [address], [place], [address]. [address], [place], [place], [id number], tel:[phone] [place] No Information 2 Kael Braxton. . Referring Provider: Tommy Stern [address] [place] [address] [address], [place], [address]. Family History Family Member Type Diagnosis Age At Onset No Information Payers Payer name Insurance type Covered green party ID Corey velasquez(s) AARP Medicare Complete 16 [id number] Social History Type Description Quantity Date Captured Comments Sex Female Smoking Status No Information Chief Complaint And Reason For Visit No Information Reason For Referral Reason For Referral No Information History Of Present Illness Encounter Date Complaint History Of Prese nt Illness No Information Functional Status Date Functional Assessmen t No Information Instructions Date Instruction Additional Infor mation Giving encouragement to exercise Related to Overweight Giving encouragement to exercise Related to Overweight Assessments Type Assessment Date No Information Patient Care Teams Name Effective Dates (start - stop) Status Members No Information
== END 2024-06-02 14:55 | disposition home or self-care (01) ==
LOC: ANHIMG 14:56
PROVIDERS: PCP Family Medicine; Visit Provider Nurse Practitioner
DX: M85.88 Other specified disorders of bone density and structure, other site (principal); Z78.0 Asymptomatic menopausal state
CPT/HCPCS: 77080

== ENCOUNTER 2024-10-22 09:35 | Outpatient (CLI) | payer MEDICARE, SELFPAY ==
--- NOTE | ~2024-10-22 | MR_ITS ---
MRI of the left shoulder Technique: Axial proton-density fat-sat images, coronal proton density fat-sat and T2 fat-sat images, and sagittal T1-weighted and T2 fat-sat images were acquired. Clinical History: Pain Findings: There is mild to moderate AC joint degenerative change. Coracoclavicular, coracoacromial, c oracohumeral ligaments are intact. There is focal high-grade bursal surface partial tear versus full-thickness tear at the distal supras pinatus tendon insertion, with tear measuring approximately 5 x 5 mm in extent. Infraspinatus tendon is intact. Subscapularis tendon is intact. Tendon of long head of the biceps is intact. No labral tear evident. Inferior glenohumeral ligament is intact. No significant degenerative change of the glenohumeral join t. There is minimal glenohumeral joint effusion. No fluid distention of the subacromial/subdeltoid bu rsa. No muscle atrophy or edema. Impression: 5 x 5 mm high-grade bursal surface partial tear of the distal supraspinatus tendon, versus possibly f ull-thickness tear. Nvdx-[id number] AC joint degenerative change. Reviewed, dictated and finalized at location . Impression: 5 x 5 mm high-grade bursal surface partial tear of the distal supraspinatus ten don, versus possibly full-thickness tear. Skjz-[id number]-gtubbbrr AC joint degenerative change.
== END 2024-10-22 09:36 | disposition home or self-care (01) ==
LOC: MICIMG 09:35
PROVIDERS: PCP Family Medicine; Visit Provider Nurse Practitioner Family
DX: S46.812A Strain of other muscles, fascia and tendons at shoulder and upper arm level, left arm, initial encounter (principal); X58.XXXA Exposure to other specified factors, initial encounter; M19.012 Primary osteoarthritis, left shoulder
CPT/HCPCS: 73221

== ENCOUNTER 2024-10-26 10:02 | Emergency (ER) | payer MEDICARE, SELFPAY ==
[2024-10-26 10:11] VITALS: BP 120/70; PULSE 69; RESP 16; TEMP 36.1; O2SAT 100
--- NOTE | 2024-10-26 10:49 | ED.BACK ---
HPI - Back Pain/Injury General Chief Complaint: Back Pain/Injury Stated Complaint: Back Pain Time Seen by Provider: 10/26/24 10:21 Source: patient and RN notes reviewed Mode of arrival: ambulatory Limitations: no limitations History of Present Illness HPI Narrative: Patient presents today with a 2 day history of low back pain. Patient was slightly bent over taking care for khanna at home and when she went to stand up felt a twinge in her back. She currently rates her pain 8/10 with movement and has tried Tylenol and ice without much relief. Denies radiation of pain, numbness or tingling in the legs or genitalia, loss of bowel or bladder control. Patient has history of ankylosing spondylitis in her chart, but does not currently take any medication for it. 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 Related Data Home Medications ?Medication ?Instructions ?Recorded ?Confirmed ?Last Taken ?Type estradiol 0.01% (0.1 mg/gram) 1 g vaginal 2XW 02/18/19 05/06/24 Unknown History vaginal cream solifenacin 10 mg tablet 10 mg PO DAILY 09/14/20 05/06/24 Unknown History ezetimibe 10 mg tablet 10 mg PO DAILY 05/06/24 05/06/24 Unknown History fluticasone propionate 50 2 spray intranasal DAILY PRN 05/06/24 05/06/24 Unknown History mcg/actuation nasal spray,suspension (Flonase Allergy Relief) Allergies Allergy/AdvReac Type Severity Reaction Status Date / Time ampicillin Allergy Unknown Hives Verified 10/26/24 10:05 cephalexin Allergy Unknown Rash Verified 10/26/24 10:05 propranolol AdvReac Mild muscle Verified 10/26/24 10:05 cramps PMFSH Past Medical History Medical History Osteopenia Migraine Impingement syndrome of both shoulders Right shoulder pain DJD of shoulder GERD (gastroesophageal reflux disease) Anxiety Overactive bladder History of bradycardia Hyperlipidemia Surgical History Surgical History History of vaginal delivery x2 - 1985, 1987 H/O cataract removal with insertion of prosthetic lens (~2021) b/l Family History Family History Mother Family history of thyroid disease Hypertension Family history of arthritis Father Family history of arthritis Family history of lung cancer Other Family history of cardiovascular disease Family history of malignant neoplasm Family history of malignant neoplasm of stomach Family history of throat cancer Social History Social History Smoking status: Never smoker Alcohol intake: current Alcohol use details: wine, occasionally Substance use: never Substance use type: does not use Lack of Transportation: No Lack of Food: Never True Current Housing: I Have Housing Concerned About Future Housing: No Difficulty Paying Gas/Electric Bills: No Difficulty Paying for Meds: No Currently Unemployed: No Education: Associate Degree Difficulty w/ Childcare or Family Care: No Living arrangements: with family Additional living arrangements comments: Occupation/Education: retired Gender identity (if verbalized by the patient): Female Sexual Orientation (if Verbalized by the Patient): Straight or Heterosexual Agree to blood products: Yes Comments At time of signature, I have reviewed and agree with nursing past medical, surgical, social and family history unless otherwise noted. Please see nursing chart for further information. There is no relevant family history pertinent to the presenting complaint Exam Narrative: GENERAL: Well-appearing, well-nourished, mild pain distress with movement. HEAD: Normocephalic, atraumatic. EYES: EOMI. No redness or drainage. Conjunctivae normal. ENT: Mucous membranes pink and moist. NECK: Normal AROM. CHEST: No respiratory distress. MUSCULOSKELETAL: Very mild bony tenderness of the lower lumbar spine with bilateral tenderness of the paraspinal muscles of the lower lumbar spine. No SI joint tenderness. Distal sensation intact bilaterally. Saddle sensation intact. Capillary refill normal. 5/5 strength in BLE. EXTREMITIES: Normal range of motion. No edema. SKIN: Warm, dry, no rash. Capillary refill normal. Normal skin turgor. NEURO: No focal deficits. Alert and oriented x3. Gait steady. PSYCH: Normal affect. No signs of depression or anxiety. Course Course Level of Care: Express Care Visit Vital Signs Vital signs: Vital Signs Temperature 97 F L 10/26/24 10:11 Pulse Rate 69 10/26/24 10:11 Respiratory Rate 16 10/26/24 10:11 Blood Pressure 120/70 10/26/24 10:11 Pulse Oximetry 100 10/26/24 10:11 Temperature 97 F L 10/26/24 10:11 Pulse Rate 69 10/26/24 10:11 Respiratory Rate 16 10/26/24 10:11 Blood Pressure 120/70 10/26/24 10:11 Pulse Oximetry 100 10/26/24 10:11 Reviewed MDM - Back Pain/Injury MDM Narrative Medical decision making narrative: 69-year-old female patient presents with a 2 day history of bilateral lower back pain with injury a home. Neurovascularly intact exam with tenderness along the lower lumbar spine and paraspinal muscles. OTC treatment without relief. Prescription for low-dose Flexeril and meloxicam provided. Considered safety of flexeril due to Beers Criteria, but patient is robust for her age, and discussed sedative effects so she is aware. Smallest dosage prescribed and believe she will benefit. Vital signs stable. Strict ED precautions given. Differential Diagnosis Differential diagnosis: Likely lumbar radiculopathy, sciatica and strain of lumbar region Critical Care Time Critical Care Time Critical Care Time: No Discharge Plan Discharge Clinical Impression: Strain of lumbar region Qualifiers: Encounter type: initial encounter Qualified Code(s): S39.012A - Strain of muscle, fascia and tendon of lower back, initial encounter Patient Disposition: Home Condition: Stable Instructions: Acute Low Back Pain (ED) Additional Instructions: Please take the meloxicam and Flexeril as directed. Do not drive within 8 hours of taking Flexeril as it can make you drowsy. You may also try a topical lidocaine patch anma-grk-ptfvpbe. Use a heating pad to help relax your muscles. Do not use a heating pad on top of an osmg-ngw-pztoaws patch. Follow-up with your PCP in 7-10 days if symptoms are not improving. Go to the ER immediately if symptoms worsen to include numbness or tingling in the extremities or genitalia, loss of bowel or bladder control, significant increase in pain. Patient Language: Thai Prescriptions: New cyclobenzaprine 5 mg tablet 5 mg PO TID PRN (Reason: muscle spasm) Qty: 15 0RF meloxicam 7.5 mg tablet 7.5 mg PO DAILY Qty: 14 0RF No Action estradiol 0.01 % (0.1 mg/gram) cream 1 g VAGINAL 2XW solifenacin 10 mg tablet 10 mg PO DAILY sumatriptan succinate 25 mg tablet See Rx Instructions PO .COMPLEX Qty: 27 1RF Rx Instructions: take 1 tab at onset of headache; if no relief may repeat 1 tab after at least 2 hrs; max = 4 tabs/24 hr PO fluticasone propionate [Flonase Allergy Relief] 50 mcg/actuation spray,suspension 2 spray intranasal DAILY PRN Rx Instructions: administer into each nostril ezetimibe 10 mg tablet 10 mg PO DAILY meloxicam 7.5 mg tablet 7.5 mg PO DAILY Qty: 30 0RF famotidine 20 mg tablet 20 mg PO DAILY Qty: 100 1RF pravastatin 10 mg tablet 10 mg PO QHS Qty: 90 1RF Follow-up/Referrals: Mayelin Mays MD [Primary Care Provider] - Time of Disposition: 10:35
== END 2024-10-26 10:35 | disposition home or self-care (01) ==
PROVIDERS: Emergency Provider Nurse Practitioner; PCP Family Medicine
DX: S39.012A Strain of muscle, fascia and tendon of lower back, initial encounter (principal); X50.1XXA Overexertion from prolonged static or awkward postures, initial encounter; E78.5 Hyperlipidemia, unspecified; K21.9 Gastro-esophageal reflux disease without esophagitis; N32.81 Overactive bladder; M85.80 Other specified disorders of bone density and structure, unspecified site; M19.012 Primary osteoarthritis, left shoulder; Z96.1 Presence of intraocular lens; Z98.42 Cataract extraction status, left eye; Z98.41 Cataract extraction status, right eye
CPT/HCPCS: 99213; G0463

== ENCOUNTER 2024-12-16 10:09 | Outpatient (CLI) | payer MEDICARE, SELFPAY ==
--- NOTE | ~2024-12-16 | MM_ITS ---
EXAMINATION: MM screening [facility] BI w elle HISTORY: Screening TECHNIQUE: Craniocaudal and mediolateral oblique 3-D tomosynthesis images were obtained and synthetic 2-D images were generated. CAD analysis was submitted and interpreted. COMPARISON: Comparison to multiple prior studies sequentially, with oldest reviewed study dated 10/03/2017. BREAST PARENCHYMAL COMPOSITION: The breasts are heterogeneously dense, which may obscure small masses. FINDINGS: There is no evidence of suspicious mass, calcification, or architectural distortion to suggest malignancy in either breast. Scattered benign-appearing calcifications are present. IMPRESSION: 1. No mammographic evidence of malignancy. 2. Recommend routine screening mammography in one year. BI-RADS Category 2: Benign finding(s). Reviewed, dictated and finalized at location B.
--- OUTSIDE RECORDS SUMMARY | 2024-12-16 11:37 | XMS_ITS | Encounter Summary ---
[facility] Organization [facility] Address 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
--- OUTSIDE RECORDS SUMMARY | 2024-12-16 11:37 | XMS_ITS | Clinical Summary ---
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 Gender Identity Not on file Sexual Orientation Not on file Plan of Treatment Health Maintenance Due Date Last Done Comments DTAP/TDAP/TD VACCINES (1 - Tdap) 1973 BREAST CANCER SCREENING 1994 COLORECTAL SCREENING 10/25/1999 Colorectal Cancer Screening 10/25/1999 FIT-DNA Q 3 years 10/25/1999 FIT/FOBT Q 1 year 10/25/1999 Flex Sig/CT Colonography Q 5 years 10/25/1999 PNEUMOCOCCAL VACCINE 50+ YEARS (1 of 1 - PCV) 10/25/19 05 ZOSTER VACCINE (1 of 2) 2004 OSTEOPOROSIS SCREENING 10/25/2019 INFLUENZA VACCINE (#1) 2024 01/06/2022 RSV VACCINE (60+ or ) (1 - 1-dose 75+ series) 2029 Insurance [facility] OPTIONS PPO [id number] RX [employer] RX Member Subscriber Plan / Payer (Ef fective for All Dates) Name:Zhao Silverio Relation to Subscriber:Self Name:Zhao Silverio Payer ID:Not on file Group ID:[id number] Type:RX Medicare Part D Address: [address]
--- OUTSIDE RECORDS SUMMARY | 2024-12-16 11:37 | XMS_ITS | Clinical Summary ---
Author Organization [facility] Address [address] [place] [address] Care Team Providers Care Time Recorder Name Role Phone Unavailable Primary Care Provider Unavailabl e Source Comments [facility],non-owned Affiliates and Associated Physician Practices is amultiple site organization consisting of ambulatory clinics and hospital sitesin [place], [place], [place] and [place]. This disclosure is being madepursuant to the Care Everywhere program and may not contain all information available regarding this patient. 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 Gender Identity Female 05/20/2021 1:03 PM POLE SHAVER HELPER Sexual Orientation Not on file Plan of [...] 2004 LIPID TESTING 12/29/2016 12/30/2011, 12/15/2010, 12/19/2008 DEPRESSION SCREENING 04/09/2024 COVID-19 VACCINE (1 - 2023-2 5 season) 2024 INFLUENZA VACCINE (#1) 2024 12/26/2011 Respiratory Syncytial Virus (RSV) Vaccine Pt: or [...] complete this topic MENINGOCOCCAL (Group B) VACCINE SHARED DECISION-MAKING Aged Out No longer eligible based on patient's age to complete this topic MENINGOCOCCAL GROUPS A/C/Y/W VACCINE Aged Out No longer eligible b ased on patient's age to complete this topic Procedures Procedure Name Priority Date/Time Associated Diagnosis Comments LIPID PROFILE Routine 12/30/2011 9:15 AM CDT from Last 3 Months or Most Recently Relevant to Health Maintenance Results * (ABNORMAL) LIPID PROFILE (12/30/2011 9:15 AM CDT) [facility] Cholesterol Total 219(H) 100 - 199 mg/dL [facility] Comment:Please note refere nce interval change Triglycerides 64 0 - 149 mg/dL [facility]) Comment:Please note refere nce interval change HDL 62 >39 mg/dL [facility] Comment: According to ATP-III Guidelines, HDL-C >59 mg/dL is considered a negative risk factor for CHD. VLDL Calculated 13 5 - 40 mg/dL [facility]) LDL Calculated 144(H) 0 - 99 mg/dL [facility]) Comment:Please note refere nce interval change Venous blood specimen (specimen) 12/30/2011 9:15 AM CDT 12/30/2011 2:24 PM CDT Narrative [facility] ([facility]) - 12/31/2011 9:43 AM CDT Performed at: [address] [place] [id number] [employer] Spotter: Siobhan Jenkins MD, Phone: [phone] us Betty Luna MD LAB - CHEMISTRY ORDERABLES Final Result [facility]) [address] [place] [address], [facility] from Last 3 Months or Most Recently Relevant to Health Maintenance Insurance
== END 2024-12-16 10:10 | disposition home or self-care (01) ==
PROVIDERS: PCP Family Medicine; Visit Provider Nurse Practitioner
DX: Z12.31 Encounter for screening mammogram for malignant neoplasm of breast (principal)
CPT/HCPCS: 77063; 77067

== ENCOUNTER 2025-03-20 08:50 | Outpatient (CLI) | payer MEDICARE, SELFPAY ==
[2025-03-20 18:12] LABS: Hematocrit 41.8 % (37.0-47.0); Hemoglobin 12.9 g/dL (12.0-15.0); Immature Granulocyte Percent A 0.3 % (0-0.5); Lymphocytes Absolute Auto 1.49 K/mm3 (0.9-3.2); Mean Corpuscular HGB Conc 30.9 g/dl (32-36); Mean Corpuscular Hemoglobin 30.8 pg (26-34); Mean Corpuscular Volume 99.8 fl (80-100); Nucleated Red Blood Cells Absolute Auto 0.000 K/mm3 (0.0-0.012); Nucleated Red Blood Cells Perc 0.0 % (0.0-0.2); Platelet Count Result 173 k/mm3 (150-375); Red Blood Count 4.19 M/mm3 (4.2-5.4); White Blood Count 6.1 K/mm3 (4.5-10.0)
[2025-03-20 19:12] LABS: Hemoglobin A1C 5.4 % (<5.7)
[2025-03-20 19:15] LABS: Alanine Aminotransferase 23 U/L (6-35); Albumin Level 4.0 g/dL (3.5-5.1); Alkaline Phosphatase 63 U/L (38-126); Anion Gap 2 mmol/L (4-12); Aspartate Amino Transferase 31 U/L (14-36); Bilirubin,Total 0.5 mg/dL (0.2-1.3); Blood Urea Nitrogen 13 mg/dL (7-17); Calcium 9.2 mg/dL (8.4-10.2); Carbon Dioxide 28 mmol/L (22-30); Chloride 108 mmol/L (98-107); Cholesterol 184 mg/dL (0-200); Estimated Glomerular Filt Rate > 60; Glucose 92 mg/dL (65-110); HDL Direct 62 mg/dL; Magnesium 2.3 mg/dL (1.6-2.3); Potassium 4.3 mmol/L (3.4-5.0); Sodium 138 mmol/L (137-145); Total Protein 7.1 g/dL (6.3-8.2); Triglycerides 82 mg/dL (<150)
[2025-03-20 20:01] LABS: Thyroid Stimulating Hormone Reflex 1.800 uIU/mL (0.465-4.68)
[2025-03-20 20:08] LABS: Vitamin B12 306.0 pg/mL (239-931)
== END 2025-03-20 08:51 | disposition home or self-care (01) ==
PROVIDERS: PCP Family Medicine; Visit Provider Nurse Practitioner Family
DX: E78.5 Hyperlipidemia, unspecified (principal); N32.81 Overactive bladder; E55.9 Vitamin D deficiency, unspecified; R73.9 Hyperglycemia, unspecified; F41.9 Anxiety disorder, unspecified; G43.719 Chronic migraine without aura, intractable, without status migrainosus
CPT/HCPCS: 36415; 80053; 80061; 82306; 82607; 83036; 83735; 84443; 85025

== ENCOUNTER 2025-03-29 13:57 | Emergency (ER) | payer MEDICARE, SELFPAY ==
[2025-03-29 14:04] VITALS: BP 131/67; PULSE 67; RESP 16; TEMP 36.4; O2SAT 98
--- NOTE | 2025-03-29 14:24 | ED.URI ---
HPI - URI/Sore Throat General Chief Complaint: Upper Respiratory Infection Stated Complaint: Sinus Infection Symptoms Time Seen by Provider: 03/29/25 14:00 Source: patient Mode of arrival: ambulatory Limitations: no limitations History of Present Illness HPI Narrative: patient is a 69-year-old female who presents with sinus pressure, congestion and cough for over 1 week. Patient has also had significant Fatigue. Denies a fever, chills, nausea, vomiting, diarrhea. patient has tried [id number] medication with no relief Related Data Home Medications ?Medication ?Instructions ?Recorded ?Confirmed ?Last Taken ?Type estradiol 0.01% (0.1 mg/gram) 1 g vaginal 2XW 02/18/19 03/10/25 Unknown History vaginal cream solifenacin 10 mg tablet 10 mg PO DAILY 09/14/20 03/10/25 Unknown History meloxicam 7.5 mg tablet 7.5 mg PO DAILY PRN 03/10/25 03/10/25 Unknown History solifenacin 5 mg tablet mg PO 03/29/25 Unknown History Allergies Allergy/AdvReac Type Severity Reaction Status Date / Time ampicillin Allergy Unknown Hives Verified 03/29/25 14:03 cephalexin Allergy Unknown Rash Verified 03/29/25 14:03 propranolol AdvReac Mild muscle Verified 03/29/25 14:03 cramps Review of Systems Review of Systems: All systems reviewed & are unremarkable except as noted in HPI and below Constitutional: Constitutional: Denies chills, Denies fatigue, Denies fever(s), Denies headache(s), Denies malaise and Denies weakness Eyes: Eyes: Denies blurry vision, Denies itchy eyes and Denies loss of vision ENT: Denies otalgia, Denies headache(s), Reports nasal congestion, Reports sinus pressure and Denies sore throat Cardiovascular: Cardiovascular: Denies chest pain, Denies irregular heart rhythm and Denies dyspnea Respiratory: Respiratory: Reports cough and Denies dyspnea Gastrointestinal: Gastrointestinal: Denies abdominal pain, Denies diarrhea, Denies nausea and Denies vomiting Musculoskeletal: Musculoskeletal: Denies back pain, Denies myalgias and Denies arthralgias Integumentary/Breasts: Skin/Breast: Denies pruritus and Denies rash Neurologic: Denies headache(s), Denies loss of vision and Denies weakness Psychiatric: Psychiatric: Reports no additional psychiatric complaints Endocrine: Endocrine: Denies fatigue Allergic/Immunologic: Allergic/Immunologic: Denies itchy eyes PMFSH Past Medical History Medical History Rotator cuff tear, left Osteopenia Migraine Impingement syndrome of both shoulders Right shoulder pain DJD of shoulder GERD (gastroesophageal reflux disease) Anxiety Overactive bladder History of bradycardia Hyperlipidemia Surgical History Surgical History History of vaginal delivery x2 - 1985, 1987 H/O cataract removal with insertion of prosthetic lens (~2021) b/l Family History Family History Mother Family history of thyroid disease Hypertension Family history of arthritis Father Family history of arthritis Family history of lung cancer Other Family history of cardiovascular disease Family history of malignant neoplasm Family history of malignant neoplasm of stomach Family history of throat cancer Social History Social History Smoking status: Never smoker Alcohol intake: current Alcohol use details: wine, occasionally Substance use: never Substance use type: does not use Lack of Transportation: No Lack of Food: Never True Current Housing: I Have Housing Concerned About Future Housing: No Difficulty Paying Gas/Electric Bills: No Difficulty Paying for Meds: No Currently Unemployed: No Education: Associate Degree Difficulty w/ Childcare or Family Care: No Living arrangements: with family Additional living arrangements comments: Occupation/Education: retired Gender identity (if verbalized by the patient): Female Sexual Orientation (if Verbalized by the Patient): Straight or Heterosexual Agree to blood products: Yes Comments At time of signature, agree with nursing past medical, surgical, social and family history. There is no relevant family history pertinent to the presenting complaint. Exam Const: General: cooperative, healthy appearing, comfortable, no acute distress and well nourished Nutritional Appearance: well nourished Orientation/consciousness: patient oriented x3 Limitations: no limitations HENMT: Head: normal to inspection, normocephalic and atraumatic Ears: hearing grossly normal bilaterally, external ears normal, TM's normal bilaterally, EAC's normal and no periauricular adenopathy Face/Nose/Sinus: Normal external nose present, Abnormal mucous membranes and turbinates present erythematous bilateral and diffuse, normal facial exam, sinuses nontender and face symmetric Face and sinus: normal facial exam, sinuses nontender and face symmetric Mouth: Yes Normal oral and palatal mucosa present, Yes lip normal, Yes tongue normal, Yes Normal salivary glands and ducts present, Yes oropharynx normal and Yes moist mucous membranes Teeth and gingiva: dentition normal Throat: posterior oropharynx normal, tonsils normal and uvula midline Eyes: General: appearance normal, both eyes and all related structures Alignment and Position: alignment normal and position normal Periorbital: periorbital findings normal Eyelids: eyelids normal Pupils: Equal, round and reactive pupils present Neck: Neck: normal visual inspection, full ROM, no lymphadenopathy and supple Chest: Chest palpation & inspection: normal inspection of the chest and normal palpation of entire chest wall Resp: Effort & Inspection: normal respiratory effort and able to speak in complete sentences Auscultation: clear to auscultation bilaterally, no crackles, no rales, no rhonchi and no wheezes Cardio: Rate: regular rate Rhythm: regular rhythm Heart sounds: S1 normal heart sound present and S2 normal heart sound present GI: Inspection: normal to inspection Skin: General skin exam: normal color and no rashes or lesions noted Neuro: General: patient oriented x3 and moves all extremities Cranial nerves: Yes Equal, round and reactive pupils present Speech: normal speech Gait exam (Neuro): Normal gait present Extrem: General: normal to inspection, full ROM and no edema Psych: Appearance: grossly normal and well kempt Mental Status: mental status grossly normal Speech and movement: Normal speech and movement present Affect: normal affect Attitude: cooperative Thought process: Normal thought process present Course Course Emergency Course: Patient is aware of diagnosis, understands and agrees to treatment plan. Anticipatory guidance given. Patient agrees to follow-up as directed and is aware of reasons to seek care at the emergency department. Portions of this record may have been created with voice recognition software Level of Care: Express Care Visit Vital Signs Vital signs: Vital Signs Temperature 36.4 C L 03/29/25 14:04 Pulse Rate 67 03/29/25 14:04 Respiratory Rate 16 03/29/25 14:04 Blood Pressure 131/67 03/29/25 14:04 Pulse Oximetry 98 03/29/25 14:04 Temperature 36.4 C L 03/29/25 14:04 Pulse Rate 67 12/21/25 14:04 Respiratory Rate 16 03/29/25 14:04 Blood Pressure 131/67 03/29/25 14:04 Pulse Oximetry 98 03/29/25 14:04 [facility] Narrative Medical decision making narrative: based on symptoms, exam and length of illness will treat with antibiotics, steroids and Tessalon Perles. Pt well hydrated appearing, in no respiratory distress, hemodynamically stable. Recommend supportive care. The patient is stable at time of discharge the clinical impression was discussed and the patient was given the opportunity to ask questions, which were addressed as completely as possible given the information available at present. Anticipatory guidance and return to care precautions were discussed and the importance of primary care follow-up was stressed and encouraged. The patient voiced understanding of the plan, indications to return, and the need for follow-up. Exam findings show no acute concerns or changes Patient is appropriate for outpatient treatment and follow-up. Differential Diagnosis Differential Diagnosis: Differential diagnosis considered: Ren virus, strep pharyngitis, allergic rhinitis, upper respiratory tract infection, sinusitis, rhinosinusitis, nasopharyngitis. viral pharyngitis, otitis media, otitis externa, otitis effusion, foreign body, cerumen impaction, viral syndrome, and influenza. Medical Records I have reviewed the following patient records and this information was taken into consideration when formulating the assessment and plan.: previous clinic visits Discharge Plan Discharge Clinical Impression: Upper respiratory infection with cough and congestion Patient Disposition: Home Condition: Stable Instructions: Upper Respiratory Infection (ED) Additional Instructions: Take antibiotic as prescribed. Take steroids per package instructions. Use Tessalon Perles as needed for cough. Other symptomatic treatments include: -Alternate Tylenol and Motrin per package directions for fever or pain: Tylenol 650-1000mg by mouth every 4-6 hours. Do not exceed 4000mg in 24 hours. Advil (Ibuprofen) 600 mg by mouth every 6 hours. Do not exceed 2400mg in 24 hours. 8 AM: Tylenol 11 AM: Ibuprofen 2 PM: Tylenol 5 PM: Ibuprofen 8 PM: Tylenol 11 PM: Ibuprofen 2 AM: Tylenol 5 AM: Ibuprofen -Antihistamine medication such as Benadryl at night and Zyrtec/Claritin/Mia during the day can help improve symptoms. -Use Flonase twice a day for 5 days then daily to help reduce the inflammation and dry up your sinuses. -You can also use Sudafed or Mucinex. Be sure to drink plenty of water with these medications at least 8 ounces with every dose and it is important to drink 8 to 10 glasses of water per day. Water is a natural decongestant -Eat and drink things that are easy to swallow, like tea or soup, or popsicles. -Oral rinses such as: Salt water gargles and/or may use topical anesthetic (eg. Chloraseptic spray) or lozenges to relieve dryness or throat pain). -Frequent hand washing or hand ground crew supervisor is one of the best ways to prevent spread of infection. -Using a vaporizer or humidifier at night will also help thin secretions and help with coughing up phlegm. Call your Primary Care Doctor and make a follow-up appointment in 3 days. If your cough worsens, you develop a fever greater than 103, you develop shaking chills, a fast heartbeat, trouble breathing and/or feel you are are breathing much faster than usual, call your Primary Care Doctor or go to the ER. Patient Language: Jordanian Prescriptions: New azithromycin 250 mg tablet See Rx Instructions .ROUTE .COMPLEX Qty: 6 0RF Rx Instructions: For 250 mg dose pack: take 500 mg today (day 1), then 250 mg for 4 days (days 2-5) benzonatate 100 mg capsule 100 mg PO BID PRN (Reason: cough) Qty: 14 0RF methylprednisolone [Medrol (Donny)] 4 mg tablets,dose pack See Rx Instructions .ROUTE .COMPLEX Qty: 21 0RF Rx Instructions: orally per package directions No Action estradiol 0.01 % (0.1 mg/gram) cream 1 g VAGINAL 2XW solifenacin 5 mg tablet PO solifenacin 10 mg tablet 10 mg PO DAILY meloxicam 7.5 mg tablet 7.5 mg PO DAILY PRN sumatriptan succinate 25 mg tablet See Rx Instructions PO .COMPLEX Qty: 9 5RF Rx Instructions: take 1 tab at onset of headache; if no relief may repeat 1 tab after at least 2 hrs; max = 4 tabs/24 hr PO ezetimibe 10 mg tablet 10 mg PO DAILY Qty: 100 1RF famotidine 20 mg tablet 20 mg PO DAILY Qty: 100 1RF pravastatin 10 mg tablet 10 mg PO QHS Qty: 90 1RF ergocalciferol (vitamin D2) 1,250 mcg (50,000 unit) capsule 1,250 mcg PO WEEKLY Qty: 12 1RF Follow-up/Referrals: Mayelin Mays MD [Primary Care Provider, Family Practice] - 3 Days Time of Disposition: 14:30
== END 2025-03-29 14:31 | disposition home or self-care (01) ==
PROVIDERS: Emergency Provider Nurse Practitioner Family; PCP Family Medicine
DX: J06.9 Acute upper respiratory infection, unspecified (principal); R05.9 Cough, unspecified; E78.5 Hyperlipidemia, unspecified; K21.9 Gastro-esophageal reflux disease without esophagitis; M85.80 Other specified disorders of bone density and structure, unspecified site; N32.81 Overactive bladder; Z96.1 Presence of intraocular lens; Z98.42 Cataract extraction status, left eye; Z98.41 Cataract extraction status, right eye
CPT/HCPCS: 99213; G0463

== ENCOUNTER 2025-04-06 08:58 | Emergency (ER) | payer MEDICARE, SELFPAY ==
[2025-04-06 09:11] VITALS: BP 111/74; PULSE 85; RESP 20; TEMP 36.4; O2SAT 100
--- NOTE | 2025-04-06 09:35 | ED_ITS ---
HPI - URI/Sore Throat General Chief Complaint: Upper Respiratory Infection Stated Complaint: Cough Time Seen by Provider: 04/06/25 09:20 Source: patient Mode of arrival: ambulatory Limitations: no limitations History of Present Illness HPI Narrative: Leanna is a 69-year-old female patient presenting to the clinic today with complaints of cough, sinus pressure, sinus drainage, coughing up and blowing out green nasal drainage, and headache. She reports symptoms been going on for 3 weeks. Was seen 2 weeks ago and was given Tessalon Perles, azithromycin, and a round of steroids. She reports her symptoms continue. Denies any chest pain or shortness of breath currently. States cough is keeping her up at night she has been having to sleep in the recliner. Related Data Home Medications ?Medication ?Instructions ?Recorded ?Confirmed ?Last Taken ?Type estradiol 0.01% (0.1 mg/gram) 1 g vaginal 2XW 02/18/19 04/06/25 Unknown History vaginal cream solifenacin 10 mg tablet 10 mg PO DAILY 09/14/2003/10 Unknown History meloxicam 7.5 mg tablet 7.5 mg PO DAILY PRN pain 06/0304/06/25 Unknown History Allergies Allergy/AdvReac Type Severity Reaction Status Date / Time ampicillin Allergy Unknown Hives Verified 04/06/25 09:22 cephalexin Allergy Unknown Rash Verified 04/06/25 09:22 propranolol AdvReac Mild muscle Verified 04/06/25 09:22 cramps Review of Systems Review of Systems: Pertinent positives per HPI. Patient denies any fever, chills, rash, visual changes, dizziness, shortness of breath, chest pain, palpitations, nausea, vomiting, diarrhea, constipation, abdominal pain, or any urinary issues. [facility] Past Medical History Medical History Rotator cuff tear, left Osteopenia Migraine Impingement syndrome of both shoulders Right shoulder pain DJD of shoulder GERD (gastroesophageal reflux disease) Anxiety Overactive bladder History of bradycardia Hyperlipidemia Surgical History Surgical History History of vaginal delivery x2 - 1985, 1987 H/O cataract removal with insertion of prosthetic lens (~2021) b/l Family History Family History Mother Family history of thyroid disease Hypertension Family history of arthritis Father Family history of arthritis Family history of lung cancer Other Family history of cardiovascular disease Family history of malignant neoplasm Family history of malignant neoplasm of stomach Family history of throat cancer Social History Social History Smoking status: Never smoker Alcohol intake: current Alcohol use details: wine, occasionally Substance use: never Substance use type: does not use Lack of Transportation: No Lack of Food: Never True Current Housing: I Have Housing Concerned About Future Housing: No Difficulty Paying Gas/Electric Bills: No Difficulty Paying for Meds: No Currently Unemployed: No Education: Associate Degree Difficulty w/ Childcare or Family Care: No Living arrangements: with family Additional living arrangements comments: Occupation/Education: retired Gender identity (if verbalized by the patient): Female Sexual Orientation (if Verbalized by the Patient): Straight or Heterosexual Agree to blood products: Yes Comments At the time of my signature, I reviewed and agree with the nursing past medical, surgical, social, and family history. There is no relevant family history pertinent to the patient complaint. Exam Narrative: General: Well-developed, well nourished, in no apparent distress Head: Normocephalic, atraumatic Eyes: Pupils equally round and reactive to light bilaterally, EOM intact, sclera and conjunctive clear, no discharge, lids normal Ears: TMs intact and congested, ear canals clear, no drainage, grossly hearing normal. Nose: Nares patent, green nasal discharge, moderate inflammation, maxillary and frontal sinus tenderness. Mouth: Oral pharynx red without lesions or masses, good dentition, MMM. Postnasal drip Neck: Supple, trachea midline, no enlargement of anterior or posterior cervical nodes, no thyroid masses or goiter palpable. Cardio: Regular rate and rhythm, s1 and s2 normal, no murmur appreciated. Resp: Clear to auscultation bilaterally, no rhonchi, rales, wheezing or rubs Course Course Level of Care: Express Care Visit Vital Signs Vital signs: Vital Signs Temperature 36.4 C L 04/06/25 09:11 Pulse Rate 85 04/06/25 09:11 Respiratory Rate 20 04/06/25 09:11 Blood Pressure 111/74 04/06/25 09:11 Pulse Oximetry 100 04/06/25 09:11 Oxygen Delivery Room Air 04/06/25 09:11 Temperature 36.4 C L 04/06/25 09:11 Pulse Rate 85 04/06/25 09:11 Respiratory Rate 20 04/06/25 09:11 Blood Pressure 111/74 04/06/25 09:11 Pulse Oximetry 100 04/06/25 09:11 Oxygen Delivery Room Air 04/06/25 09:11 MDM MDM Narrative Medical decision making narrative: At the time of visit patient is resting comfortably on the exam table. Patient appears to be nontoxic. Complaints of cough, sinus pressure, sinus drainage, coughing up and blowing out green nasal drainage, and headache. She reports symptoms been going on for 3 weeks. Was seen 2 weeks ago and was given Tessalon Perles, azithromycin, and a round of steroids. She reports her symptoms continue. Denies any chest pain or shortness of breath currently. States cough is keeping her up at night and she has been having this sleep in the recliner. On exam patient has bilateral TMs intact and congested, green nasal drainage, moderate anterior turbinate inflammation, maxillary and frontal sinus tenderness, oropharynx red with postnasal drip, lung sounds are clear, heart rates regular rate and rhythm. Plan: I suspect patient has acute bacterial rhinosinusitis. Prescription for doxycycline, prednisone, and Robitussin with codeine was sent to the pharmacy. Supportive measures were discussed with the patient and they voiced understanding discharge instructions and agrees to treatment plan. Return precautions reviewed Differential Diagnosis Differential Diagnosis: Differential diagnostic considerations for upper respiratory infection include upper respiratory infection, croup, otitis media, sinusitis, viral infection, bronchitis, influenza, pharyngitis, strep, uvulitis. Discharge Plan Discharge Clinical Impression: Acute bacterial rhinosinusitis Patient Disposition: Home Condition: Stable Instructions: Antibiotic Form, Sinusitis (ED) Additional Instructions: Take prescription medications only as prescribed-prednisone, doxycycline, and Robitussin with codeine Increase fluids and stay well hydrated May take Tylenol or motrin as directed on bottle for pain/fever May use Flonase 1 spray in each nare daily May take OTC antihistamines such as Zyrtec or Claritin daily as directed on bottle May apply Vicks vapor rub to chest to open sinuses Sinus rinses for congestion Cepacol spray, cough drops, throat lozenges, warm tea with honey/lemon, gargle salt water to soothe throat BRAT diet for diarrhea Clear liquids x 24 hours then advance as tolerated for nausea/vomiting Go to the ED if you develop a worsening in your condition- high fever not controlled by Tylenol or Motrin, dehydration, weakness, lethargy, shortness of breath, or chest pain. Follow up with your PCP in 3-5 days if symptoms persist. Patient Language: Icelandic Prescriptions: New doxycycline monohydrate 100 mg capsule 100 mg PO BID 10 Days Qty: 20 0RF prednisone 20 mg tablet 40 mg PO DAILY 5 Days Qty: 10 0RF codeine-guaifenesin [Virtussin AC] 10-100 mg/5 mL liquid 5 ml PO Q6H PRN (Reason: cough) 7 Days Qty: 140 0RF Rx Instructions: May cause drowsiness No Action estradiol 0.01 % (0.1 mg/gram) cream 1 g VAGINAL 2XW solifenacin 10 mg tablet 10 mg PO DAILY meloxicam 7.5 mg tablet 7.5 mg PO DAILY PRN (Reason: pain) sumatriptan succinate 25 mg tablet See Rx Instructions PO .COMPLEX Qty: 9 5RF Rx Instructions: take 1 tab at onset of headache; if no relief may repeat 1 tab after at least 2 hrs; max = 4 tabs/24 hr PO ezetimibe 10 mg tablet 10 mg PO DAILY Qty: 100 1RF famotidine 20 mg tablet 20 mg PO DAILY Qty: 100 1RF pravastatin 10 mg tablet 10 mg PO QHS Qty: 90 1RF ergocalciferol (vitamin D2) 1,250 mcg (50,000 unit) capsule 1,250 mcg PO WEEKLY Qty: 12 1RF Follow-up/Referrals: Mayelin Mays MD [Primary Care Provider, Family Practice] Time of Disposition: 09:43 Quality NIHSS Nursing Documentation ED NIHSS nursing documentation: reviewed/agree
== END 2025-04-06 09:51 | disposition home or self-care (01) ==
PROVIDERS: Emergency Provider Nurse Practitioner Family; PCP Family Medicine
DX: R05.1 Acute cough (principal); M85.88 Other specified disorders of bone density and structure, other site; G43.909 Migraine, unspecified, not intractable, without status migrainosus; M19.019 Primary osteoarthritis, unspecified shoulder; E78.5 Hyperlipidemia, unspecified; J01.80 Other acute sinusitis; B96.89 Other specified bacterial agents as the cause of diseases classified elsewhere
CPT/HCPCS: 99213; G0463